=== PATIENT | female | born 1995 | race Two or more races ===

== ENCOUNTER 2024-04-11 14:32 | Emergency (ER) | payer MEDICAID, OTHER ==
[~2024-04-11] VITALS: Ht 172.7 cm; Wt 56.4 kg
--- NOTE | 2024-04-11 15:24 | DVH ---
EXAM: XY CHEST XRAY 1 VIEW TECHNIQUE: Single frontal chest radiograph CLINICAL HISTORY: SOB GX ASTHMA COMPARISON: None Findings/Impression: Frontal chest radiograph demonstrates no acute osseous or superficial soft tissue abnormalities. The trachea is midline. The cardiac silhouette and mediastinum are within normal limits. No pneumothorax, pleural effusions, or consolidations.
[2024-04-11] MEDS: IPRATROPIUM BROM 0.5 MG/2.5ML INH SOL NEB ONE ×2 (15:55→17:05)
[2024-04-11] MEDS: ALBUTEROL SULF 2.5 MG/0.5ML(0.5%) NEB SOLN NEB ONE ×2 (15:55→17:04)
--- NOTE | 2024-04-11 15:56 | ED.PDOC ---
SOB-HPI HPI Comments 28Y F with PMHx asthma and PNA presents to ED for chief complaint SOB [id number] with cough, congestion, wheezing, body aches, and chills. Pt denies chest pain and fever. Pt used rescue inhaler at home but did not experience symptom relief. Chief Complaint: Asthma Time Seen by MD: 15:34 Primary Care Provider: FER Lock notes: Nurses Notes, Medications, Allergies Information Source: Patient Mode of Arrival: Ambulatory Severity: Mild Timing: Weeks Duration: Since onset Context: At Rest PE Risk Factors: None History of: Asthma Modifying Factors: Nothing Associated Signs and Symptoms: Wheeze, Cough, Nasal Congestion Past Medical History PAST MEDICAL HISTORY: Asthma Surgical History: Denies all surgeries PICTURE ENGRAVER History: Denies all PICTURE ENGRAVER Hx Family History Family History: Unknown Social History Smoker: Cigarettes Alcohol: Denies ETOH Use Drugs: Denies Drug Use Lives In: Home Constitutional: reports: chills, others (body aches); denies: diaphoresis, fatigue, fever, malaise, sweats, weakness EENTM: reports: nose congestion; denies: blurred vision, double vision, ear bleeding, ear discharge, ear drainage, ear pain, ear ringing, eye pain, eye redness, hearing loss, mouth pain, mouth swelling, nasal discharge, nose bleeding, nose pain, photophobia, tearing, throat pain, throat swelling, voice changes, others Respiratory: reports: cough, SOB at rest, shortness of breath, SOB with excertion, wheezing; denies: hemoptysis, orthopnea, stridor, others Cardiovascular: denies: chest pain, dizzy spells, diaphoresis, Dyspnea on exertion, edema, irregular heart beat, left arm pain, lightheadedness, palpitations, PND, syncope, others Gastrointestinal: denies: abdomen distended, abdominal pain, blood streaked bowels, constipated, diarrhea, dysphagia, difficulty swallowing, hematemesis, melena, nausea, poor appetite, poor fluid intake, rectal bleeding, rectal pain, vomiting, others Genitourinary: denies: abnormal vagina bleeding, burning, dyspareunia, dysuria, flank pain, frequency, hematuria, incontinence, pain, , vagina discharge, urgency, others Neurological: denies: dizziness, fainting, headache, left sided numbness, left sided weakness, numbness, paresthesia, pre-existing deficit, right sided numbness, right sided weakness, seizure, speech problems, tingling, tremors, weakness, others Musculoskeletal: denies: back pain, gout, joint pain, joint swelling, muscle pain, muscle stiffness, neck pain, others Integumetry: denies: bruises, change in color, change in hair/nails, dryness, laceration, lesions, lumps, rash, wounds, others Allergic/Immunocompromised: denies: Difficulty Healing, Frequent Infections, Hives, Itching, others Hematologic/Lymphatic: denies: anemia, blood clots, easy bleeding, easy bruising, swollen glands, others Endocrine: denies: excessive hunger, excessive sweating, excessive thirst, excessive urination, flushing, intolerance to cold, intolerance to heat, unexplained weight gain, unexplained weight loss, others Psychiatric: denies: anxiety, bipolar disorder, depression, hopeless, panic disorder, schizophrenia, sleepless, suicidal, others All Other Systems: Reviewed and Negative Physical Exam General Appearance: Mild Distress, Normal, Thin HEENT: Normal ENT Inspection, PERRL/EOMI, Pharynx Normal, TMs Normal Neck: Full Range of Motion, Non-Tender, Normal, Normal Inspection Respiratory: Chest Non-Tender, Crackles, Decreased Breath Sounds, Expiration, Inspiration, No Accessory Muscle Use, No Respiratory Distress, Wheezing Cardiovascular: No Edema, No JVD, No Murmur, No Gallop, Normal Peripheral Pulses, Regular Rate/Rhythm Breast Exam: Deferred Gastrointestinal: No Organomegaly, Non Tender, No Pulsatile Mass, Normal Bowel Sounds, Soft Genitalia: Deferred Pelvic: Deferred Rectal: Deferred Extremities: No calf tenderness, Normal capillary refill, Normal inspection, N ormal range of motion, Non-tender, No pedal edema Musculoskeletal : Apperance: Normal Neurologic: Alert, maintenance representative II-XII nml as Tested, No Motor Deficits, Normal Affect, Normal Mood, No Sensory Deficits Cerebellar Function: Normal Reflexes: Normal Skin: Dry, Normal Color, Warm Peripheral Pulses: 1+ carotid (R), 1+ carotid (L) Lymphatic: No Adenopathy Was a procedure done? Was a procedure done?: No Differential Dx Differential Diagnosis: Asthma, Bronchitis, Hyponatremia, Pneumonia, URI X-Ray, Labs, Meds, VS Vital Signs Date Time Temp Pulse Resp B/P (MAP) Pulse Ox O2 Delivery O2 Flow Rate FiO2 04/11/24 17:05 18 92 Nasal Cannula* 2 28 04/11/24 16:35 95 04/11/24 16:33 94 19 88 Room Air 04/11/24 16:33 98.6 94 19 105/63 (77) 88 98.6 04/11/24 15:56 18 91 Nasal Cannula* 2 28 04/11/24 15:27 98.6 90 15 112/56 (74) 91 98.6 04/11/24 15:27 90 15 91 Nasal Cannula 04/11/24 15:02 90 Room Air* 0 21 04/11/24 14:38 97.9 105 24 144/81 (102) 91 Current Medications Medications (Trade) Dose Ordered Sig/Zoila Route Start Time Stop Time Status Last Admin Albuterol (Ventolin Medneb) 5 mg ONCE ONCE NEB 04/11/24 15:45 04/11/24 15:47 DC 04/11/24 15:55 Ipratropium [place] (Atrovent Medneb) 0.5 mg ONCE ONCE NEB 04/11/24 15:45 04/11/24 15:47 DC 04/11/24 15:55 Methylprednisolone Sodium Succinate (Solu Medrol) 125 mg ONCE ONCE IV 04/11/24 15:45 04/11/24 15:47 DC 04/11/24 16:01 Albuterol (Ventolin Medneb) 5 mg ONCE ONCE NEB 04/11/24 17:00 04/11/24 17:01 DC 04/11/24 17:04 Ipratropium [place] (Atrovent Medneb) 0.5 mg ONCE ONCE NEB 04/11/24 17:00 04/11/24 17:01 DC 04/11/24 17:05 [place] [id number] Ph: [phone] DIAGNOSTIC IMAGING Diagnostic Imaging Report : [id number] Signed PATIENT: JHON MCCURDY ACCT: [id number] UNIT: [id number] : 1995 LOC: ER ROOM / BED: / AGE / SEX: 28 / F ADM STATUS: REG ER SERVICE 1502 ORDERING PHYSICIAN: GENE RAMIREZ PROCEDURE(s): CXR1 - CHEST XRAY 1 VIEW REASON: SOB GX ASTHMA ORDER NUMBER(s): [id number], ACCESSION NUMBER(s): [id number] EXAM: XY CHEST XRAY 1 VIEW TECHNIQUE: Single frontal chest radiograph CLINICAL HISTORY: SOB GX ASTHMA COMPARISON: None Findings/Impression: Frontal chest radiograph demonstrates no acute osseous or superficial soft tissue abnormalities. The trachea is midline. The cardiac silhouette and mediastinum are within normal limits. No pneumothorax, pleural effusions, or consolidations. ATED BY: ALBINA HUGHES DO DICTATED DATE/TIME: 04/11/241520 SIGNED BY: ALBINA HUGHES DO SIGNED DATE/TIME: 04/11/241520 CC: X-Ray, Labs, Meds, VS Comment Course in the emergency department eventful patient came in because of shortness of breath cough congestion history of asthma with an asthma exacerbation The chest x-ray is normal Patient received med Kodi the 1st time still wheezing Repeat the the med Kodi patient also received Solu-Medrol 125 mg IV After further re-evaluation patient is feeling better and will be discharged home to follow up with her PCP Time of 1ST Reevaluation: 16:04 Reevaluation 1ST: Unchanged Patient Education/Counseling: Diagnosis, Treatment Family Education/Counseling: No Family Present Departure 1 Departure Time of Disposition: 18:03 Impression: Primary Impression: Asthmatic bronchitis Qualified Codes: J45.41 - Moderate persistent asthma with (acute) exacerba tion Ruled Out: Pneumonia Disposition: HOME / SELF CARE / HOMELESS Condition: Fair Additional Instructions: Push fluids and follow up with your PCP e-Prescriptions Prednisone (Prednisone) 20 Mg Tab 20 MG PO BID for 5 Days, #10 MG Prov: NETO WHITEHEAD MD 04/11/24 Albuterol Sulfate (Albuterol Sulfate Hfa) 108 Mcg/Act Aer 108 MCG IN BID for 15 Days, #1 AER Prov: NETO WHITEHEAD MD 04/11/24 Azithromycin (Zithromax) 500 Mg Tab 1 TAB PO DAILY, #5 TAB Prov: NETO WHITEHEAD MD 04/11/24 Discharged With: Self Critical Care Note Critical Care Time?: No Stability Stability form required: No Heart Score Heart Score: Heart Score Response (Comments) Value History N/A 0 EKG N/A 0 Age <45 0 Risk Factors No known risk factors 0 Troponin N/A 0 Total 0 I personally scribed for NETO WHITEHEAD MD ([email or web address]) on 04/11/24 at 15:56. Electronically submitted by Diana Roque ([facility]). I personally scribed for NETO WHITEHEAD MD ([email or web address]) on 04/11/24 at 15:56. El ectronically submitted by Diana Roque ([facility]). NETO WHITEHEAD MD Apr 11, 2024 15:56
[2024-04-11] MEDS: methylPREDNISolone SOD SUCC 125 MG/2 ML VL IV ONE (16:01)
[2024-04-11 16:33] VITALS: BP 105/63; PULSE 94; TEMP 98.6
[2024-04-11 17:05] VITALS: RESP 18; O2SAT 92
[2024-04-11] MEDS ORDERED: ALBU108A5 IN (18:10)
[2024-04-11] MEDS ORDERED: PRED20TA2 PO (18:10)
[2024-04-11] MEDS ORDERED: AZIT500T PO (18:10)
== END 2024-04-11 18:35 | disposition home or self-care (01) ==
LOC: ER 14:32
DX: J45.909 Unspecified asthma, uncomplicated (principal); F17.210 Nicotine dependence, cigarettes, uncomplicated
CPT/HCPCS: 71045; 94640; 96374; 99285; J2919

== ENCOUNTER 2024-05-04 18:54 | Inpatient (IN) | payer OTHER, MEDICAID ==
[~2024-05-04] VITALS: Ht 160 cm; Wt 57.4 kg
[~2024-05-04 18:54] MED LIST: ALBU108A5 IN; AZIT500T PO; PRED20TA2 PO
[2024-05-04] MEDS: methylPREDNISolone SOD SUCC 125 MG/2 ML VL IV ONE (19:04)
[2024-05-04 19:16] VITALS: PULSE 135; RESP 28; O2SAT 98
--- NOTE | 2024-05-04 19:42 | ED.PDOC ---
SOB-HPI HPI Comments 28-year-old female who came to the emergency room via EMS due to shortness of breath. Patient has history of asthma. Few hours ago she developed sudden onset shortness of breath and wheezing. Saturating 70% on room air. Patient was placed on CPAP and it improved to 90% Chief Complaint: Shortness of Breath Time Seen by MD: 19:42 Primary Care Provider: unknown Reviewed notes: Jewelry Cutter Notes Information Source: Patient, Emergency Med Personnel Mode of Arrival: EMS Severity: Moderate Timing: Hours Duration: Since onset Context: At Rest, With Light Exertion PE Risk Factors: None History of: COPD Prehospital treatment: Breathing Tx, C-Pap, Oxygen Modifying Factors: Nothing Associated Signs and Symptoms: Wheeze Quality: Tightness Radiation: No Radiation Location: Chest (R), Chest (L) Past Medical History PAST MEDICAL HISTORY: Asthma Surgical History: Denies all surgeries FACTORY HAND History: Denies all FACTORY HAND Hx Family History Family History: Unknown Social History Smoker: Cigarettes Alcohol: Denies ETOH Use Drugs: Denies Drug Use Lives In: Home Constitutional: denies: chills, diaphoresis, fatigue, fever, malaise, sweats, weakness, others EENTM: denies: blurred vision, double vision, ear bleeding, ear discharge, ear drainage, ear pain, ear ringing, eye pain, eye redness, hearing loss, mouth pain, mouth swelling, nasal discharge, nose bleeding, nose congestion, nose pain, photophobia, tearing, throat pain, throat swelling, voice changes, others Respiratory: reports: SOB at rest, shortness of breath, wheezing; denies: cough, hemoptysis, orthopnea, SOB with excertion, stridor, others Cardiovascular: denies: chest pain, dizzy spells, diaphoresis, Dyspnea on exertion, edema, irregular heart beat, left arm pain, lightheadedness, palpitations, PND, syncope, others Gastrointestinal: denies: abdomen distended, abdominal pain, blood streaked bowels, constipated, diarrhea, dysphagia, difficulty swallowing, hematemesis, melena, nausea, poor appetite, poor fluid intake, rectal bleeding, rectal pain, vomiting, others Genitourinary: denies: abnormal vagina bleeding, burning, dyspareunia, dysuria, flank pain, frequency, hematuria, incontinence, pain, , vagina discharge, urgency, others Neurological: denies: dizziness, fainting, headache, left sided numbness, left sided weakness, numbness, paresthesia, pre-existing deficit, right sided numbness, right sided weakness, seizure, speech problems, tingling, tremors, weakness, others Musculoskeletal: denies: back pain, gout, joint pain, joint swelling, muscle pain, muscle stiffness, neck pain, others Integumetry: denies: bruises, change in color, change in hair/nails, dryness, laceration, lesions, lumps, rash, wounds, others Allergic/Immunocompromised: denies: Difficulty Healing, Frequent Infections, Hi ves, Itching, others Hematologic/Lymphatic: denies: anemia, blood clots, easy bleeding, easy bruising, swollen glands, others Endocrine: denies: excessive hunger, excessive sweating, excessive thirst, excessive urination, flushing, intolerance to cold, intolerance to heat, unexplained weight gain, unexplained weight loss, others Psychiatric: denies: anxiety, bipolar disorder, depression, hopeless, panic disorder, schizophrenia, sleepless, suicidal, others Physical Exam General Appearance: No Apparent Distress, Normal HEENT: Normal ENT Inspection, Pharynx Normal, TMs Normal Neck: Full Range of Motion, Non-Tender, Normal, Normal Inspection Respiratory: Chest Non-Tender, No Accessory Muscle Use, Respiratory Distress, Wheezing Cardiovascular: No Edema, No JVD, No Murmur, No Gallop, Normal Peripheral Pulses, Regular Rate/Rhythm Breast Exam: Deferred Gastrointestinal: No Organomegaly, Non Tender, No Pulsatile Mass, Normal Bowel Sounds, Soft Genitalia: Deferred Pelvic: Deferred Rectal: Deferred Extremities: No calf tenderness, Normal capillary refill, Normal inspection, Normal range of motion, Non-tender, No pedal edema Musculoskeletal : Apperance: Normal Neurologic: Alert, precision dyer II-XII nml as Tested, No Motor Deficits, Normal Affect, Normal Mood, No Sensory Deficits Cerebellar Function: Normal Reflexes: Normal Skin: Dry, Normal Color, Warm Lymphatic: No Adenopathy Was a procedure done? Was a procedure done?: No Differential Dx Differential Diagnosis: Asthma, Bronchitis, Pneumonia, Respiratory Distress X-Ray, Labs, Meds, VS Vital Signs Date Time Temp Pulse Resp B/P (MAP) Pulse Ox O2 Delivery O2 Flow Rate FiO2 05/04/24 19:16 135 28 98 Bi-Pap+ 100 100 05/04/24 19:15 135 28 155/80 (105) 98 05/04/24 19:14 139 155/80 Facial BiPAP Mask 100 05/04/24 19:00 98.0 149 30 155/123 (134) 95 Lab Test 05/04/24 19:59 05/04/24 19:44 Range/Units White Blood Count 11.6 H 4.4-10.8 10^3/uL Red Blood Count 4.74 4.0-5.20 10^6/uL Hemoglobin 15.2 12.2-16.2 g/dL Hematocrit 44.8 36.0-46.0 % Mean Corpuscular Volume 94.7 80.0-100.0 fL Mean Corpuscular Hemoglobin 32.2 H 28.0-32.0 pg Mean Corpuscular Hemoglobin Concent 34.0 32.0-36.0 g/dL Red Cell Distribution Width 12.9 11.8-14.3 % Platelet Count 211 140-450 10^3/uL Mean Platelet Volume 9.6 6.9-10.8 fL Neutrophils (%) (Auto) 62.8 37.0-80.0 % Lymphocytes (%) (Auto) 16.6 10.0-50.0 % Monocytes (%) (Auto) 7.4 0.0-12.0 % Eosinophils (%) (Auto) 12.7 H 0.0-7.0 % Basophils (%) (Auto) 0.5 0.0-2.0 % Neutrophils # (Auto) 7.3 1.6-8.6 10 ^3/uL Lymphocytes # (Auto) 1.9 0.4-5.4 10 ^3/uL Monocytes # (Auto) 0.9 0-1.3 10 ^3/uL Eosinophils # (Auto) 1.5 H 0-0.8 10 ^3/uL Basophils # (Auto) 0.1 0-0.2 10 ^3/uL Nucleated Red Blood Cells 0.0 % Sodium Level 140 136-145 mmol/L Potassium Level 3.8 3.5-5.1 mmol/L Chloride Level 106 98-107 mmol/L Carbon Dioxide Level 26 20-31 mmol/L Anion Gap 8 5-15 Blood Urea Nitrogen 6 L 9-23 mg/dL Creatinine 0.73 0.550-1.02 mg/dL Glomerular Filtration Rate Calc 116 >90 mL/min BUN/Creatinine Ratio 8.2 L 10.0-20.0 Serum Glucose 123 H 74-106 mg/dL Calcium Level 9.6 8.7-10.4 mg/dL Blood Gas Specimen Type Arterial Blood Gas Sample Site Left radial Blood Gas Patient Temperature 37.0 Arterial Blood Date Drawn [id number] Arterial Blood pH 7.319 L 7.350-7.450 Arterial Blood Partial Pressure CO2 47.8 H 32.0-45.0 mmHg Arterial Blood Partial Pressure O2 273.1 H 83.0-108.0 mmHg Arterial Blood HCO3 24.0 21.0-28.0 mmol/L Arterial Blood Oxygen Saturation 99.7 H 94.0-98.0 % Arterial Blood Base Excess -2.5 L -2.0-3.0 mmol/L Arterial Blood Oxyhemoglobin 98.7 H 94.0-98.0 % Arterial Blood Carboxyhemoglobin 0.5 0.5-1.5 % Arterial Blood Methemoglobin 0.5 0.0-1.5 % Karthikeyan Test Modified Blood Gas Total Hemoglobin 15.80 12.0-16.0 g/dL Blood Gas Modality Mask - bipap FiO2 % 100.0 Blood Gas EPAP 5 Blood Gas IPAP 12 Current Medications Medications (Trade) Dose Ordered Sig/Zoila Route Start Time Stop Time Status Last Admin Albuterol (Ventolin Medneb) 5 mg ONCE ONCE NEB 05/04/24 19:00 05/04/24 19:01 DC 05/04/24 19:50 Ipratropium [place] (Atrovent Medneb) 0.5 mg ONCE ONCE NEB 05/04/24 19:00 05/04/24 19:01 DC 05/04/24 19:50 Methylprednisolone Sodium Succinate (Solu Medrol) 62.5 mg ONCE ONCE IV 05/04/24 19:00 05/04/24 19:01 DC 05/04/24 19:04 Magnesium Sulfate/ Dextrose 100 ml @ 100 mls/hr Q1H IV 05/04/24 19:00 05/04/24 20:59 05/04/24 19:45 Ketamine HCl (Ketalar) 30 mg ONCE ONCE IV 05/04/24 19:30 05/04/24 19:31 DC 05/04/24 20:11 Time of 1ST Reevaluation: 19:37 Reevaluation 1ST: Unchanged Patient Education/Counseling: Diagnosis, Treatment Family Education/Counseling: No Family Present Departure 1 Departure Time of Disposition: 20:47 (Patient presented with acute shortness of breath concerning for acute on chronic asthma exacerbation, Pneumonia, ACS, CHF, Pneumothorax. Less likely PE, Dissection. Data: 1. I ordered and reviewed the result of at least 3 labs including a CBC, BMP, and Troponin. 2. I independently interpreted the following tests: Chest X-ray shows benign chest .Risk:This patient has a high risk of morbidity due to further diagnostic testing or treatment and may suffer from respiratory or cardiac etiology . Workup reveals an asthma exacerbation requiring BiPAP and patient should be admitted for further workup. and possible expert consultation.) Impression: Primary Impression: Acute respiratory failure Qualified Codes: J96.01 - Acute respiratory failure with hypoxia Additional Impression: Acute asthma exacerbation Qualified Codes: J45.41 - Moderate persistent asthma with (acute) exacerbation Disposition: ADMITTED INPATIENT Admit to: [facility] Condition: Critical Critical Care Note Critical Care Time?: Yes (35 min-critical care time only) Critical care comment: Acute respiratory failure requiring BiPAP Authorized and Performed by: Mirella Zuleta MD Total critical care time: Approximately 48 minutes Due to a high probability of clinically significant, life threatening deterioration, the patient required my highest level of preparedness to intervene emergently and I personally spent this critical care time directly and personally managing the patient. This critical care time included obtaining a history; examining the patient; pulse oximetry; ordering and review of studies; arranging urgent treatment with development of a management plan; evaluation of patient's response to treatment; frequent reassessment; and, discussions with other providers. This critical care time was performed to assess and manage the high probability of imminent, life-threatening deterioration that could result in multi-organ failure. It was exclusive of separately billable procedures and treating other patients and teaching time. Please see my other sections and the rest of the note for further information on patient assessment and treatment. Stability Stability form required: No Heart Score Heart Score: Heart Score Response (Comments) Value History N/A 0 EKG N/A 0 Age N/A 0 Risk Factors N/A 0 Troponin N/A 0 Total 0 I personally scribed for MIRELLA ZULETA MD ([email or web address]) on 1/24/25 at 19:42. Electronically submitted by Dong Desai ([email or web address]). MIRELLA ZULETA MD May 04, 2024 19:42
--- NOTE | 2024-05-04 19:43 | DVH ---
CHEST RADIOGRAPH Indication: sob Technique: Single frontal view of the chest was obtained Comparison: XY CHEST XRAY 1 VIEW on DOS: 04/11/24 FINDINGS: Lines and Tubes: None Lungs: No focal consolidation. Pleura: No effusion. No pneumothorax. Cardiomediastinal contours: Unremarkable Bones: No acute osseous abnormality. IMPRESSION: 1. No acute cardiopulmonary disease. 2. Hyperinflation
[2024-05-04] MEDS: MAGNESIUM SULFATE 1GM/100ML 100 ML IV SCH (19:45)
[2024-05-04 19:50] LABS: Base Excess -2.5 mmol/L (-2.0-3.0)
[2024-05-04] MEDS: IPRATROPIUM BROM 0.5 MG/2.5ML INH SOL NEB ONE (19:50)
[2024-05-04] MEDS: ALBUTEROL SULF 2.5 MG/0.5ML(0.5%) NEB SOLN NEB ONE (19:50)
[2024-05-04] MEDS: KETAMINE 50mg/ML 10ml Vial (500mg/10ml) IV ONE (20:11)
[2024-05-04 20:16] LABS: Basophils # (auto) 0.1 10 ^3/uL (0-0.2); Basophils % (auto) 0.5 % (0.0-2.0); Eosinophils # (auto) 1.5 10 ^3/uL (0-0.8); Eosinophils % (auto) 12.7 % (0.0-7.0); Hematocrit 44.8 % (36.0-46.0); Hemoglobin 15.2 g/dL (12.2-16.2); Lymphocytes # (auto) 1.9 10 ^3/uL (0.4-5.4); Lymphocytes % (auto) 16.6 % (10.0-50.0); Mean Corpuscular Hemoglobin 32.2 pg (28.0-32.0); Mean Corpuscular Volume 94.7 fL (80.0-100.0); Monocytes # (auto) 0.9 10 ^3/uL (0-1.3); Monocytes % (auto) 7.4 % (0.0-12.0); Neutrophils # (auto) 7.3 10 ^3/uL (1.6-8.6); Neutrophils % (auto) 62.8 % (37.0-80.0); Platelet Count (auto) 211 10^3/uL (140-450); Red Blood Cells 4.74 10^6/uL (4.0-5.20); Red Cell Distribution Width 12.9 % (11.8-14.3); White Blood Cell 11.6 10^3/uL (4.4-10.8)
[2024-05-04 20:20] LABS: Chloride 106 mmol/L (98-107); Potassium 3.8 mmol/L (3.5-5.1); Sodium 140 mmol/L (136-145)
[2024-05-04 20:21] LABS: Anion Gap 8 (5-15); Carbon Dioxide 26 mmol/L (20-31)
[2024-05-04 20:22] LABS: Calcium 9.6 mg/dL (8.7-10.4)
[2024-05-04 20:26] LABS: BUN/Creatinine Ratio 8.2 (10.0-20.0)
[2024-05-04 20:27] LABS: Blood Urea Nitrogen 6 mg/dL (9-23); Glucose 123 mg/dL (74-106)
[2024-05-04] MEDS ORDERED: HYDROcodone-ACET 5/325MG TAB PO PRN (21:30)
[2024-05-04] MEDS ORDERED: ONDANSETRON HCL 4 MG/2 ML VIAL IV PRN (21:30)
[2024-05-04] MEDS ORDERED: DOCUSATE SOD 100 MG CAP PO PRN (21:30)
[2024-05-04] MEDS ORDERED: ACETAMINOPHEN 325 MG TAB PO PRN (21:30)
[2024-05-04] MEDS ORDERED: NITROGLYCERIN 0.4 MG SL TAB SL PRN (21:30)
[2024-05-04] MEDS ORDERED: MORPHINE SULFATE INJ 2 MG/ml SYRG IV PRN (21:30)
--- NOTE | 2024-05-04 21:35 | DVHHP2 ---
History of Present Illness Reason for Visit: Acute respiratory failure with hypoxia History of Present Illness The patient is a 28-year-old female with past medical history of asthma presented to [facility] ED with complaint of shortness of breaths. Patient reports symptoms progressively get worse with shortness of breath on exertion, SOB at rest, hypoxia with O2 saturation in the 70s, increased work of breathing, getting worse that prompted this visit. Patient was seen and evaluated in the ED, laboratory data shows WBC 11.6, platelets 211, sodium 140, potassium 3.8, BUN 6, creatinine 0.73, GFR 116, glucose 123, blood pressure 155/80, heart rate 149 trending down to 75, temperature 98.0 F, O2 saturation 95% on BiPAP. Chest x-ray show no acute cardiopulmonary disease, noted hyperinflation. Patient was started on IV Solu-Medrol, please see medication orders section in the computer. On my assessment, patient denied chest pain, no headache, no dizziness, no diaphoresis, currently on oxygen, no nausea, no vomiting, no fever, no chills. Patient was admitted for further evaluation medical management. Past Medical History Asthma Past Surgical History Denies all surgeries Family History Reviewed, noncontributory to the management of this case. Past Social History The patient lives at home, smokes cigarettes, denies alcohol or illicit drugs abuse. Review of Systems Constitutional: Yes: Weakness; No: Fever, Chills, Sweats, Malaise, Other Eyes: No: Pain, Vision change, Conjunctivae inflammation, Eyelid inflammation, Other, Redness ENT: No: Ear pain, Ear discharge, Nose pain, Nose discharge, Nose congestion, Mouth pain, Mouth swelling, Throat pain, Throat swelling, Other Respiratory: Shortness of breath, SOB with excertion, Other (SOB at rest); No: Cough, Dry, Wheezing, Hemoptysis, Pleuritic Pain, Sputum, Wheezing Cardiovascular: No: Chest Pain, Palpitations, Orthopnea, Paroxysmal Noc. Dyspnea, Edema, Lt Headedness, Other Gastrointestinal: No: Nausea, Vomiting, Abdominal Pain, Diarrhea, Constipation, Melena, Hematochezia, Other Genitourinary: No Dysuria, No Frequency, No Incontinence, No Hematuria, No Retention, No Other Musculoskeletal: No: other, neck pain, shoulder pain, arm pain, back pain, hand pain, leg pain, foot pain Skin: No: Rash, Lesions, Jaundice, Bruising, Other Neurological: No: Weakness, Numbness, Incoordination, Change in speech, Confusion, Seizures, Other Allergies: Coded Allergies: NO KNOWN ALLERGIES (Unverified , 04/11/24) Exam Vital Signs Vital Signs Date Time Temp Pulse Resp B/P (MAP) Pulse Ox O2 Delivery O2 Flow Rate FiO2 05/04/24 20:51 123 Facial BiPAP Mask 75 05/04/24 19:16 28 98 05/04/24 19:15 155/80 (105) 05/04/24 19:00 98.0 General Appearance: Alert, Oriented X3, Cooperative, No acute distress HEENT: Atraumatic, PERRLA, EOMI, Mucous membr. moist/pink Respiratory: Clear to auscultation, Normal air movement Cardiovascular: Regular rate, Normal S1, Normal S2, No murmurs Abdominal: Normal bowel sounds, Soft, No tenderness, No hepatospenomegaly, No masses Extremities: No clubbing, No cyanosis, No edema, Normal pulses, No tenderness/swelling Skin: No rashes, No breakdown, No significant lesion Neuro: Normal speech, Normal tone, Sensation intact, Cranial nerves 3-12 NL, Reflexes 2+, Other (Generalized weakness) Psych/Mental Status: Mental status NL, Mood NL Labs/Xrays Labs Test 05/04/24 19:59 05/04/24 19:44 Range/Units White Blood Count 11.6 H 4.4-10.8 10^3/uL Red Blood Count 4.74 4.0-5.20 10^6/uL Hemoglobin 15.2 12.2-16.2 g/dL Hematocrit 44.8 36.0-46.0 % Mean Corpuscular Volume 94.7 80.0-100.0 fL Mean Corpuscular Hemoglobin 32.2 H 28.0-32.0 pg Mean Corpuscular Hemoglobin Concent 34.0 32.0-36.0 g/dL Red Cell Distribution Width 12.9 11.8-14.3 % Platelet Count 211 140-450 10^3/uL Mean Platelet Volume 9.6 6.9-10.8 fL Neutrophils (%) (Auto) 62.8 37.0-80.0 % Lymphocytes (%) (Auto) 16.6 10.0-50.0 % Monocytes (%) (Auto) 7.4 0.0-12.0 % Eosinophils (%) (Auto) 12.7 H 0.0-7.0 % Basophils (%) (Auto) 0.5 0.0-2.0 % Neutrophils # (Auto) 7.3 1.6-8.6 10 ^3/uL Lymphocytes # (Auto) 1.9 0.4-5.4 10 ^3/uL Monocytes # (Auto) 0.9 0-1.3 10 ^3/uL Eosinophils # (Auto) 1.5 H 0-0.8 10 ^3/uL Basophils # (Auto) 0.1 0-0.2 10 ^3/uL Nucleated Red Blood Cells 0.0 % Sodium Level 140 136-145 mmol/L Potassium Level 3.8 3.5-5.1 mmol/L Chloride Level 106 98-107 mmol/L Carbon Dioxide Level 26 20-31 mmol/L Anion Gap 8 5-15 Blood Urea Nitrogen 6 L 9-23 mg/dL Creatinine 0.73 0.550-1.02 mg/dL Glomerular Filtration Rate Calc 116 >90 mL/min BUN/Creatinine Ratio 8.2 L 10.0-20.0 Serum Glucose 123 H 74-106 mg/dL Calcium Level 9.6 8.7-10.4 mg/dL Blood Gas Specimen Type Arterial Blood Gas Sample Site Left radial Blood Gas Patient Temperature 37.0 Arterial Blood Date Drawn [id number] Arterial Blood pH 7.319 L 7.350-7.450 Arterial Blood Partial Pressure CO2 47.8 H 32.0-45.0 mmHg Arterial Blood Partial Pressure O2 273.1 H 83.0-108.0 mmHg Arterial Blood HCO3 24.0 21.0-28.0 mmol/L Arterial Blood Oxygen Saturation 99.7 H 94.0-98.0 % Arterial Blood Base Excess -2.5 L -2.0-3.0 mmol/L Arterial Blood Oxyhemoglobin 98.7 H 94.0-98.0 % Arterial Blood Carboxyhemoglobin 0.5 0.5-1.5 % Arterial Blood Methemoglobin 0.5 0.0-1.5 % Karthikeyan Test Modified Blood Gas Total Hemoglobin 15.80 12.0-16.0 g/dL Blood Gas Modality Mask - bipap FiO2 % 100.0 Blood Gas EPAP 5 Blood Gas IPAP 12 PATIENT: CALLI,JHON ACCT: [id number] UNIT: [id number] : 1995 LOC: ER ROOM / BED: / AGE / SEX: 28 / F ADM STATUS: REG ER SERVICE 55 ORDERING PHYSICIAN: MIRELLA CHAVEZ MD PROCEDURE(s): CXRP - CHEST PORTABLE REASON: sob ORDER NUMBER(s): [id number], ACCESSION NUMBER(s): [id number] CHEST RADIOGRAPH Indication: sob Technique: Single frontal view of the chest was obtained Comparison: XY CHEST XRAY 1 VIEW on DOS: 04/11/24 FINDINGS: Lines and Tubes: None Lungs: No focal consolidation. Pleura: No effusion. No pneumothorax. Cardiomediastinal contours: Unremarkable Bones: No acute osseous abnormality. IMPRESSION: 1. No acute cardiopulmonary disease. 2. Hyperinflation Assessment/Plan Assessment/Plan Acute respiratory failure Tachycardia Acute respiratory failure with hypoxia Acute asthma exacerbation Generalized weakness Moderate persistent asthma with (acute) exacerbation Plan 1. Admit to telemetry unit 2. Breathing treatment 3. Pain control management 4. Management of fluids and electrolytes 5. Consultation for pulmonology 6. Diagnostic tests chest x-ray 7. DVT prophylaxis-on SCDs 8. Repeat labs CBC, CMP in a.m. 9. Continue with current medical management 10. Treatment plan discussed with patient and RN. Patient verbalized understanding. Plan discussed with: Patient, Other (RN) My Orders Orders - TOÑO GREEN DNP Procedure Category Date Status Time Levalbuterol Hcl PHA 05/05/24 Verified (Xopenex Medneb) 00:00 Ipratropium Medneb PHA 05/04/24 Verified (Atrovent Medneb) 21:30 Methylprednisolone PHA 05/04/24 Verified Sod Succ (Solu Medrol 22:00 Famotidine Injection PHA 05/04/24 Verified (Pepcid Injection) 22:00 *Consult CONS 05/04/24 Verified / 21:28 Admit ADMIT 05/04/24 Verified 21:28 Allergies DIANE 05/04/24 Verified 21:28 Code Status CODE 05/04/24 Verified 21:28 Oxygen Per Hour RT 05/04/24 Verified 21:28 Hydrocodone-Acet PHA 05/04/24 Verified 5/325mg Tab ([place] 21:30 Problem List: (1) Acute respiratory failure (2) Tachycardia (3) Acute respiratory failure with hypoxia (4) Acute asthma exacerbation (5) Generalized weakness (6) Moderate persistent asthma with (acute) exacerbation Date of Service: May 04, 2024 Billing Provider: TOÑO GREEN DNP Common Visit Codes: [id number] INP/OBS CARE (HIGH) TOÑO GREEN DNP May 04, 2024 21:35
--- NOTE | 2024-05-04 22:51 | DVHINCON2 ---
Date of service: May 04, 2024 Referring Physician Carlton Sparks NP Reason for Consultation Acute hypoxic respiratory failure and asthma exacerbation History of Present Illness A 28-year-old woman with past medical history of asthma who presents to ED today with complaint of shortness of breath. Patient reports symptoms progressively worsened with shortness of breath on exertion, SOB at rest, hypoxia with O2 saturation in the 70s, and increased work of breathing that prompted this visit. Workup in ED showed WBC 11.6, platelets 211, sodium 140, potassium 3.8, BUN 6, creatinine 0.73, GFR 116, glucose 123. Vitals were BP of 155/80, heart rate 149 trending down to 75, temperature 98.0 F, O2 saturation 95% on BiPAP. Chest x- ray showed no acute cardiopulmonary disease, noted hyperinflation. Patient was admitted for further care and pulmonary consultation is requested for evaluation and management of acute hypoxic respiratory failure and asthma exacerbation. Review of Systems: 14-point review of systems negative unless otherwise noted above. Past Medical History: Asthma Past Surgical History: None Medications: Reviewed. Allergies: No known drug allergies. Family History: No family history of premature CAD. No family history of lung disorders. Social History: Smoker. Smokes cigarettes. No alcohol or illicit drug use. Allergies: Coded Allergies: NO KNOWN ALLERGIES (Unverified , 04/11/24) Home Meds Active Scripts Methylprednisolone (Medrol Dosepak) 4 Mg Devin, 4 MG PO UD, #21 TAB UAD Prov:JORGE PÉREZ MD 05/06/24 Azithromycin (ZITHROMAX TABLET) 250 Mg Tb, 250 MG PO DAILY, #6 TAB take 2 tabs the first day and then 1 tab per day until finish Prov:JORGE PÉREZ MD 05/06/24 Albuterol Sulfate (Albuterol Sulfate Hfa) 108 Mcg/Act Aer, 108 MCG IN BID PRN, #1 AER 5 Refills Prov:JORGE PÉREZ MD 05/06/24 Current Medications Current Medications Medications (Trade) Dose Ordered Sig/Zoila Route PRN Reason Start Time Stop Time Status Last Admin Magnesium Sulfate/ Dextrose 100 ml @ 100 mls/hr Q1H IV 05/04/24 19:00 05/04/24 20:59 DC 05/04/24 19:45 Levalbuterol HCl (Xopenex Medneb) 0.625 mg Q6HR NEB 05/05/24 00:00 Ipratropium [place] (Atrovent Medneb) 0.5 mg Q6HPRN PRN NEB SHORTNESS OF BREATH 05/04/24 21:30 Methylprednisolone Sodium Succinate (Solu Medrol) 40 mg Q8HR IV 05/04/24 22:00 Famotidine (Pepcid Injection) 20 mg Q12HR IV 05/04/24 22:00 Acetaminophen/ Hydrocodone Bitart ([place] 5/325MG Tab) 1 tab Q4HP PRN PO MODERATE PAIN (4-6 PAIN SCALE) 05/04/24 21:30 Ondansetron HCl (Zofran) 4 mg Q4HP PRN IV NAUSEA / VOMITING 05/04/24 21:30 Docusate Sodium (Colace Capsule) 100 mg BIDPRN PRN PO FOR CONSTIPATION 05/04/24 21:30 Acetaminophen (Tylenol Tablet) 650 mg Q6HP PRN PO PAIN SCALE 1-3 OR TEMP>100.4 05/04/24 21:30 Nitroglycerin (Ntrostat Sublingual) 0.4 mg Q5MINP PRN SL FOR CHEST PAIN 05/04/24 21:30 Morphine Sulfate 2 mg Q30M PRN IV FOR CHEST PAIN 05/04/24 21:30 Vital Signs Vital Signs Date Time Temp Pulse Resp B/P (MAP) Pulse Ox O2 Delivery O2 Flow Rate FiO2 05/04/24 20:51 123 Facial BiPAP Mask 75 05/04/24 19:16 28 98 05/04/24 19:15 155/80 (105) 05/04/24 19:00 98.0 Physical Exam Gen.: Patient lying in bed in no apparent distress. On BiPAP Head: Normocephalic, atraumatic. Eyes: EOMI/PERRLA. Ears: Normal hearing. Normal anatomy. Neck/trachea: Trachea midline, supple. Nose: Normal external anatomy. Mouth: Moist mucous membranes. Chest: Decreased air entry bilaterally. No wheezing or rhonchi. Cardiovascular: Positive S1, positive S2. Regular rate and rhythm. Abdomen: Positive bowel sounds in all 4 quadrants. Soft, non-tender, non- distended. : Deferred. Rectal: Deferred. Skin: Warm, dry. Intact. Extremities: 2+ radial pulses bilaterally. No lower extremity edema. Neuro: Awake, alert, oriented x3. No gross motor or sensory deficits. Cranial nerves II through XII intact. Gait not assessed. Labs/Diagnostic Data Labs Test 05/04/24 19:59 05/04/24 19:44 Range/Units White Blood Count 11.6 H 4.4-10.8 10^3/uL Red Blood Count 4.74 4.0-5.20 10^6/uL Hemoglobin 15.2 12.2-16.2 g/dL Hematocrit 44.8 36.0-46.0 % Mean Corpuscular Volume 94.7 80.0-100.0 fL Mean Corpuscular Hemoglobin 32.2 H 28.0-32.0 pg Mean Corpuscular Hemoglobin Concent 34.0 32.0-36.0 g/dL Red Cell Distribution Width 12.9 11.8-14.3 % Platelet Count 211 140-450 10^3/uL Mean Platelet Volume 9.6 6.9-10.8 fL Neutrophils (%) (Auto) 62.8 37.0-80.0 % Lymphocytes (%) (Auto) 16.6 10.0-50.0 % Monocytes (%) (Auto) 7.4 0.0-12.0 % Eosinophils (%) (Auto) 12.7 H 0.0-7.0 % Basophils (%) (Auto) 0.5 0.0-2.0 % Neutrophils # (Auto) 7.3 1.6-8.6 10 ^3/uL Lymphocytes # (Auto) 1.9 0.4-5.4 10 ^3/uL Monocytes # (Auto) 0.9 0-1.3 10 ^3/uL Eosinophils # (Auto) 1.5 H 0-0.8 10 ^3/uL Basophils # (Auto) 0.1 0-0.2 10 ^3/uL Nucleated Red Blood Cells 0.0 % Sodium Level 140 136-145 mmol/L Potassium Level 3.8 3.5-5.1 mmol/L Chloride Level 106 98-107 mmol/L Carbon Dioxide Level 26 20-31 mmol/L Anion Gap 8 5-15 Blood Urea Nitrogen 6 L 9-23 mg/dL Creatinine 0.73 0.550-1.02 mg/dL Glomerular Filtration Rate Calc 116 >90 mL/min BUN/Creatinine Ratio 8.2 L 10.0-20.0 Serum Glucose 123 H 74-106 mg/dL Calcium Level 9.6 8.7-10.4 mg/dL Blood Gas Specimen Type Arterial Blood Gas Sample Site Left radial Blood Gas Patient Temperature 37.0 Arterial Blood Date Drawn [id number] Arterial Blood pH 7.319 L 7.350-7.450 Arterial Blood Partial Pressure CO2 47.8 H 32.0-45.0 mmHg Arterial Blood Partial Pressure O2 273.1 H 83.0-108.0 mmHg Arterial Blood HCO3 24.0 21.0-28.0 mmol/L Arterial Blood Oxygen Saturation 99.7 H 94.0-98.0 % Arterial Blood Base Excess -2.5 L -2.0-3.0 mmol/L Arterial Blood Oxyhemoglobin 98.7 H 94.0-98.0 % Arterial Blood Carboxyhemoglobin 0.5 0.5-1.5 % Arterial Blood Methemoglobin 0.5 0.0-1.5 % Karthikeyan Test Modified Blood Gas Total Hemoglobin 15.80 12.0-16.0 g/dL Blood Gas Modality Mask - bipap FiO2 % 100.0 Blood Gas EPAP 5 Blood Gas IPAP 12 Assessment Impression: Acute hypoxic respiratory failure Acute exacerbation of asthma Nicotine dependence Eosinophilic asthma Plan: On BiPAP Titrate to keep O2 sats above 92%. Continue bronchodilators. Pulmicort BID Continue steroids Monitor renal function. Monitor electrolytes. Supplement as necessary. Monitor ins and outs. Smoking cessation discussed for greater than 10 minutes No desire to quit at this time Of note, eosinophils were 1150 DVT prophylaxis. Prognosis: Poor given patient's multiple co-morbidities. Rest of plan per hospitalist and other consultants. Thank you, SOCORRO Sparks, for allowing me to participate in this patient's care. Further recommendations will depend on the patient's clinical course. Please do not hesitate to contact me if you have any questions or concerns. This medical document was created using an electronic medical record system with [employer] system. Although these documentations are being carefully reviewed, there may still be some phonetic and typographical changes. The errors are purely typographical, due to imperfection on the software program, and do not reflect any compromise in the patient's medical care. Plan discussed with: Patient, Other (RN/SOCORRO Sparks/) MILES SCHNEIDER MD May 04, 2024 22:51
[2024-05-04 23:00] VITALS: BP 117/59; PULSE 91; RESP 19; TEMP 98.1; O2SAT 94
[2024-05-04] MEDS: SODIUM CHLORIDE 0.9% 1,000 ML IV ONE (23:02)
[2024-05-04] MEDS: FAMOTIDINE (10MG/ML) 2ML VL IV SCH (23:05)
[2024-05-04] MEDS: methylPREDNISolone SOD SUCC 40 MG/ML VL IV SCH (23:08)
[2024-05-04 23:47] VITALS: BP 117/59; PULSE 91; RESP 19; O2SAT 94
[2024-05-04] MEDS: LEVALBUTEROL HCL 1.25 MG/3 ML NEB NEB SCH (23:47)
[2024-05-04] MEDS: IPRATROPIUM BROM 0.5 MG/2.5ML INH SOL NEB PRN (23:47)
[2024-05-04 23:55] VITALS: PULSE 89; RESP 18; O2SAT 97
[2024-05-05] VITALS (22 sets, daily range): BP systolic 100–116; BP diastolic 60–76; PULSE 65–120; RESP 15–20; TEMP 97.5–98.3; O2SAT 92–100
[2024-05-05 07:48] LABS: Base Excess -1.6 mmol/L (-2.0-3.0)
[2024-05-05 08:13] LABS: Basophils # (auto) 0 10 ^3/uL (0-0.2); Basophils % (auto) 0.2 % (0.0-2.0); Eosinophils # (auto) 0 10 ^3/uL (0-0.8); Hematocrit 43.1 % (36.0-46.0); Hemoglobin 14.7 g/dL (12.2-16.2); Lymphocytes # (auto) 0.8 10 ^3/uL (0.4-5.4); Mean Corpuscular Hemoglobin 32.2 pg (28.0-32.0); Mean Corpuscular Volume 94.6 fL (80.0-100.0); Monocytes # (auto) 0.3 10 ^3/uL (0-1.3); Monocytes % (auto) 4.9 % (0.0-12.0); Neutrophils # (auto) 5.2 10 ^3/uL (1.6-8.6); Neutrophils % (auto) 82.9 % (37.0-80.0); Platelet Count (auto) 202 10^3/uL (140-450); Red Blood Cells 4.55 10^6/uL (4.0-5.20); White Blood Cell 6.3 10^3/uL (4.4-10.8)
[2024-05-05 08:24] LABS: Alanine Aminotransferase 14 U/L (7-40); Albumin 4.4 g/dL (3.2-4.8); Alkaline Phosphatase 53 U/L (46-116); Anion Gap 9 (5-15); Aspartate Aminotransferase 15 U/L (13-40); Bilirubin, Total 0.4 mg/dL (0.2-1.0); Calcium 9.3 mg/dL (8.7-10.4); Carbon Dioxide 24 mmol/L (20-31); Chloride 106 mmol/L (98-107); Potassium 4.7 mmol/L (3.5-5.1); Sodium 139 mmol/L (136-145); Total Protein 6.5 g/dL (5.7-8.2)
[2024-05-05 08:36] LABS: Blood Urea Nitrogen < 5 mg/dL (9-23); Glucose 122 mg/dL (74-106)
[2024-05-05] MEDS: IOHEXOL 350 MG/ML 100ML IJ ONE (16:39)
[2024-05-05] MEDS: cefTRIAXone 1GM/50ML D5W 50 ML IV SCH (17:00)
[2024-05-05] MEDS: AZITHROMYCIN 500MG/ 250ML 250 ML IV SCH (18:06)
--- NOTE | 2024-05-05 18:16 | DVH ---
Procedure: CT CT ANGIO CHEST CONTRAST Reason for study/Clinical History: rule out pulmonary embolism Comparison Study: None available at time of dictation. Exam Date: 05/05/2024 04:41 PM Radiation Dose Information: CT Dose: CTDI volume is 6.53 mGy. Dose-length product is 272.82 mGy*cm Contrast: Type of contrast: Omnipaque 350 Contrast inject: 50 mL Contrast wasted:0 TECHNIQUE: After the uneventful administration of intravenous contrast intravenously, CT imaging was performed through the chest. Coronal and sagittal reformations were performed by the technologist. Sagittal and coronal MIP images reconstructed and submitted for interpretation. FINDINGS: Lower Neck: Visualized portions of the thyroid gland are unremarkable. Aorta and Vasculature: Normal caliber of thoracic aorta. Lymph Nodes: No enlarged intrathoracic lymph nodes. Mediastinum: Heart size is normal. There is no pericardial effusion. The esophagus is unremarkable. Lungs: No focal consolidation, pleural effusion or significant pneumothorax. No suspicious pulmonary nodule or mass. Scarring or atelectasis right middle lung field Musculoskeletal: No acute osseous abnormality. Upper abdomen: Limited portions of the upper abdomen are unremarkable. IMPRESSION: 1. No findings of pulmonary emboli 2. No findings of pulmonary artery hypertension All CT scans at this medical facility are performed using dose modulation techniques as appropriate t o a performed exam including the following: Automated exposure control was utilized; adjustment of th e MA and/or KV according to patient size; and use of iterative reconstruction technique.
--- NOTE | 2024-05-05 22:46 | DVHPN2 ---
Progress Note - Dictate Date Seen: May 05, 2024 Medical Necessity Reason Pt with a Central, PICC or Fol: No Subjective atient seen and examined at bedside. Remains on supplemental oxygen Overnight events reviewed. vital signs Vital Sign Date Time Temp Pulse Resp B/P (MAP) Pulse Ox O2 Delivery O2 Flow Rate FiO2 05/05/24 21:00 98.0 89 19 102/60 (74) 96 98.0 05/05/24 11:40 Oxymizer 8 N/A Total Intake and Output 05/04/24 05/04/24 05/05/24 15:00 23:00 07:00 Intake Total 0 ml Balance 0 ml medications Current Medications Medications Dose Ordered Sig/Zoila Route Start Time Stop Time Status Last Admin Dose Admin Levalbuterol HCl 0.625 mg Q6HR NEB 05/05/24 00:00 05/05/24 19:06 0.625 MG Ipratropium [place] 0.5 mg Q6HPRN PRN NEB 05/04/24 21:30 05/05/24 19:06 0.5 MG Methylprednisolone Sodium Succinate 40 mg Q8HR IV 05/04/24 22:00 05/05/24 14:08 40 MG Famotidine 20 mg Q12HR IV 05/04/24 22:00 05/05/24 09:41 20 MG Acetaminophen/ Hydrocodone Bitart 1 tab Q4HP PRN PO 05/04/24 21:30 Ondansetron HCl 4 mg Q4HP PRN IV 05/04/24 21:30 Docusate Sodium 100 mg BIDPRN PRN PO 05/04/24 21:30 Acetaminophen 650 mg Q6HP PRN PO 05/04/24 21:30 Nitroglycerin 0.4 mg Q5MINP PRN SL 05/04/24 21:30 Morphine Sulfate 2 mg Q30M PRN IV 05/04/24 21:30 Azithromycin 250 ml @ 125 mls/hr DAILY IV 05/05/24 10:00 05/05/24 18:06 125 MLS/HR Ceftriaxone Sodium 50 ml @ 100 mls/hr DAILY@09 IV 05/05/24 09:00 05/05/24 17:00 100 MLS/HR objective Gen.: Patient lying in bed in no apparent distress. On supplemental oxygen. Head: Normocephalic, atraumatic. Eyes: EOMI/PERRLA. Ears: Normal hearing. Normal anatomy. Neck/trachea: Trachea midline, supple. Nose: Normal external anatomy. Mouth: Moist mucous membranes. Chest: Decreased air entry bilaterally. No wheezing or rhonchi. Cardiovascular: Positive S1, positive S2. Regular rate and rhythm. Abdomen: Positive bowel sounds in all 4 quadrants. Soft, non-tender, non- distended. : Deferred. Rectal: Deferred. Skin: Warm, dry. Intact. Extremities: 2+ radial pulses bilaterally. No lower extremity edema. Neuro: Awake, alert, oriented x3. No gross motor or sensory deficits. Cranial nerves II through XII intact. Gait not assessed. laboratory and microbiology Laboratory Tests 05/05/24 07:20 Test 05/05/24 07:20 Range/Units Serum Glucose 122 H 74-106 mg/dL Assessment/Plan Impression: Acute hypoxic respiratory failure Acute exacerbation of asthma Nicotine dependence Events: On supplemental oxygen, 8 LPM NC Improved O2 requirements Taper O2 as tolerated BiPAP PRN. Pt desaturates with exertion. Continue bronchodilators Continue steroids Continue antibiotics CTA demonstrates no e/o pulmonary embolism. Labs and imaging reviewed. Rest of plan as noted below. Plan: Supplemental oxygen Titrate to keep O2 sats above 92%. BiPAP PRN Continue bronchodilators. Pulmicort BID Continue steroids Monitor renal function. Monitor electrolytes. Supplement as necessary. Monitor ins and outs. Smoking cessation discussed for greater than 10 minutes DVT prophylaxis. Prognosis: Poor given patient's multiple co-morbidities. Rest of plan per hospitalist and other consultants. Thank you, SOCORRO Sparks, for allowing me to participate in this patient's care. Further recommendations will depend on the patient's clinical course. Please do not hesitate to contact me if you have any questions or concerns. This medical document was created using an electronic medical record system with [employer] dictation system. Although these documentations are being carefully reviewed, there may still be some phonetic and typographical changes. The errors are purely typographical, due to imperfection on the software program, and do not reflect any compromise in the patient's medical care. Plan discussed with: Patient, Other (KANU Jeter) MILES SCHNEIDER MD May 05, 2024 22:46
--- NOTE | 2024-05-05 23:07 | DVHPN2 ---
Subjective The patient is seen and examined at bedside. Still have shortness for breath with stated that she feels much better Reviewed: Care Plan, H&P, Labs, Medications, Previous Orders, Radiology Changes from previous H/P or p: No Changes Eyes: No Pain, No Vision change, No Conjunctivae inflammation, No Eyelid inflammation, No Other, No Redness ENT: No Ear pain, No Ear discharge, No Nose pain, No Nose discharge, No Nose congestion, No Mouth pain, No Mouth swelling, No Throat pain, No Throat swelling, No Other Cardiovascular: No Chest Pain, No Palpitations, No Orthopnea, No Paroxysmal Noc. Dyspnea, No Edema, No Lt Headedness, No Other Respiratory: No Cough, No Dry; Shortness of breath, SOB with excertion; No Wheezing, No Hemoptysis, No Pleuritic Pain, No Sputum; Other (SOB at rest) Gastrointestinal: No Nausea, No Vomiting, No Abdominal Pain, No Diarrhea, No Constipation, No Melena, No Hematochezia, No Other Genitourinary: No Dysuria, No Frequency, No Incontinence, No Hematuria, No Retention, No Other Musculoskeletal: No other, No neck pain, No shoulder pain, No arm pain, No back pain, No hand pain, No leg pain, No foot pain Skin: No Rash, No Lesions, No Jaundice, No Bruising, No Other Objective Vitals Vital Signs Date Time Temp Pulse Resp B/P (MAP) Pulse Ox O2 Delivery O2 Flow Rate FiO2 05/05/24 21:00 98.0 89 19 102/60 (74) 96 98.0 05/05/24 11:40 Oxymizer 8 N/A Intake/Output Intake and Output 05/05/24 07:00 Intake Total 0 ml Balance 0 ml Intake Oral 0 ml General Appearance: Alert, Oriented X3, Cooperative, No acute distress HEENT: Atraumatic, PERRLA, EOMI, Mucous membr. moist/pink Neck: Supple Lungs: Clear to auscultation, Normal air movement Cardiovascular: Regular rate, Normal S1, Normal S2, No murmurs, Gallops, Rubs Abdomen: Normal bowel sounds, Soft, No tenderness Neuro: Cranial nerves 3-12 NL Psych/Mental Status: Mental status NL Medications Current Medications Medications Dose Ordered Sig/Zoila Route Start Time Stop Time Status Last Admin Dose Admin Levalbuterol HCl 0.625 mg Q6HR NEB 05/05/24 00:00 05/05/24 19:06 0.625 MG Ipratropium [place] 0.5 mg Q6HPRN PRN NEB 05/04/24 21:30 05/05/24 19:06 0.5 MG Methylprednisolone Sodium Succinate 40 mg Q8HR IV 05/04/24 22:00 05/05/24 22:45 40 MG Famotidine 20 mg Q12HR IV 05/04/24 22:00 05/05/24 22:45 20 MG Acetaminophen/ Hydrocodone Bitart 1 tab Q4HP PRN PO 05/04/24 21:30 Ondansetron HCl 4 mg Q4HP PRN IV 05/04/24 21:30 Docusate Sodium 100 mg BIDPRN PRN PO 05/04/24 21:30 Acetaminophen 650 mg Q6HP PRN PO 05/04/24 21:30 Nitroglycerin 0.4 mg Q5MINP PRN SL 05/04/24 21:30 Morphine Sulfate 2 mg Q30M PRN IV 05/04/24 21:30 Azithromycin 250 ml @ 125 mls/hr DAILY IV 05/05/24 10:00 05/05/24 18:06 125 MLS/HR Ceftriaxone Sodium 50 ml @ 100 mls/hr DAILY@09 IV 05/05/24 09:00 05/05/24 17:00 100 MLS/HR Laboratory Results Laboratory Tests 05/05/24 07:20 Chemistry Test 05/05/24 07:20 Albumin 4.4 g/dL (3.2-4.8) Calcium Level 9.3 mg/dL (8.7-10.4) Total Protein 6.5 g/dL (5.7-8.2) LFT Test 05/05/24 07:20 Alanine Aminotransferase (ALT) 14 U/L (7-40) Alkaline Phosphatase 53 U/L (46-116) Aspartate Amino Transferase (AST) 15 U/L (13-40) Total Bilirubin 0.4 mg/dL (0.2-1.0) Blood Gas Results Test 05/05/24 07:38 Arterial Blood pH 7.401 (7.350-7.450) FiO2 % 60.0 Labs and/or images reviewed: Labs reviewed by me Assessment/Plan Assessment/Plan Tachycardia Acute respiratory failure with hypoxia Acute asthma exacerbation Generalized weakness Plan: Continuing current management. Continuing with nebulizer. I am going to add to her regimen Rocephin 1 g IV q.day and Zithromax 500 mg daily to empirically treat for possible pneumonia. I will order CTA of chest to rule out pulmonary embolism. Continuing with Solu-Medrol. Discuss with patient and her in length at bedside. Advice to follow up with the gathering machine feeder as outpatient. Plan discussed with: Patient My Orders Orders - JORGE PÉREZ MD Procedure Category Date Status Time Azithromycin 500mg/ PHA 05/05/24 In Process 250ml (Zithromax 50 10:00 Ceftriaxone 1gm/50ml PHA 05/05/24 In Process D5w (Rocephin) 09:[address] 05/05/24 Resulted Contrast 15:55 Date of Service: May 05, 2024 Billing Provider: JORGE PÉREZ MD Common Visit Codes: [id number] INP/OBS CARE(HIGH) JORGE PÉREZ MD May 05, 2024 23:07
[2024-05-06] VITALS (15 sets, daily range): BP systolic 94–141; BP diastolic 57–77; PULSE 60–98; RESP 16–19; TEMP 97.9–98.1; O2SAT 92–99
[2024-05-06] MEDS ORDERED: ALBU108A5 IN (13:17)
[2024-05-06] MEDS ORDERED: AZIT-185 PO (13:17)
[2024-05-06] MEDS ORDERED: METH4PAK PO (13:17)
--- NOTE | 2024-05-06 13:18 | DVHDS2 ---
Discharge Summary Date of Admission May 04, 2024 at 21:28 Date of Discharge: May 06, 2024 Labs/Diagnostic Data: Laboratory Results Test 05/05/24 07:38 05/05/24 07:20 05/04/24 19:44 Blood Gas Specimen Type Arterial Blood Gas Sample Site Right radial Blood Gas Patient Temperature 37.0 Arterial Blood Date Drawn [id number] Arterial Blood pH 7.401 (7.350-7.450) Arterial Blood Partial Pressure CO2 37.4 mmHg (32.0-45.0) Arterial Blood Partial Pressure O2 88.1 mmHg (83.0-108.0) Arterial Blood HCO3 22.7 mmol/L (21.0-28.0) Arterial Blood Oxygen Saturation 96.6 % (94.0-98.0) Arterial Blood Base Excess -1.6 mmol/L (-2.0-3.0) Arterial Blood Oxyhemoglobin 95.7 % (94.0-98.0) Arterial Blood Carboxyhemoglobin 0.5 % (0.5-1.5) Arterial Blood Methemoglobin 0.4 % (0.0-1.5) Karthikeyan Test Yes Blood Gas Total Hemoglobin 14.80 g/dL (12.0-16.0) Blood Gas Modality Mask - bipap FiO2 % 60.0 White Blood Count 6.3 10^3/uL (4.4-10.8) Red Blood Count 4.55 10^6/uL (4.0-5.20) Hemoglobin 14.7 g/dL (12.2-16.2) Hematocrit 43.1 % (36.0-46.0) Mean Corpuscular Volume 94.6 fL (80.0-100.0) Mean Corpuscular Hemoglobin 32.2 pg (28.0-32.0) Mean Corpuscular Hemoglobin Concent 34.0 g/dL (32.0-36.0) Red Cell Distribution Width 13.0 % (11.8-14.3) Platelet Count 202 10^3/uL (140-450) Mean Platelet Volume 9.6 fL (6.9-10.8) Neutrophils (%) (Auto) 82.9 % (37.0-80.0) Lymphocytes (%) (Auto) 12.0 % (10.0-50.0) Monocytes (%) (Auto) 4.9 % (0.0-12.0) Eosinophils (%) (Auto) 0.0 % (0.0-7.0) Basophils (%) (Auto) 0.2 % (0.0-2.0) Neutrophils # (Auto) 5.2 10 ^3/uL (1.6-8.6) Lymphocytes # (Auto) 0.8 10 ^3/uL (0.4-5.4) Monocytes # (Auto) 0.3 10 ^3/uL (0-1.3) Eosinophils # (Auto) 0 10 ^3/uL (0-0.8) Basophils # (Auto) 0 10 ^3/uL (0-0.2) Nucleated Red Blood Cells 0.0 % Sodium Level 139 mmol/L (136-145) Potassium Level 4.7 mmol/L (3.5-5.1) Chloride Level 106 mmol/L (98-107) Carbon Dioxide Level 24 mmol/L (20-31) Anion Gap 9 (5-15) Blood Urea Nitrogen < 5 mg/dL (9-23) Creatinine 0.71 mg/dL (0.550-1.02) Glomerular Filtration Rate Calc 119 mL/min (>90) BUN/Creatinine Ratio 7.0 (10.0-20.0) Serum Glucose 122 mg/dL (74-106) Calcium Level 9.3 mg/dL (8.7-10.4) Total Bilirubin 0.4 mg/dL (0.2-1.0) Aspartate Amino Transferase (AST) 15 U/L (13-40) Alanine Aminotransferase (ALT) 14 U/L (7-40) Alkaline Phosphatase 53 U/L (46-116) Total Protein 6.5 g/dL (5.7-8.2) Albumin 4.4 g/dL (3.2-4.8) Blood Gas EPAP 5 Blood Gas IPAP 12 Other Laboratory Tests 05/05/24 07:20 Final Diagnosis/Problems List Asthma exacerbation Discharge Disposition: Home Discharge Instruct/Medications Diet: Regular Activity: No Restrictions, As Tolerated Follow Up/Referral: pcp 1-2 weeks food writer per schedule Medications: zpak until finish albuterol PRN Medro dose jessa until finish Discharge Statement: "Patient was advised to return to the ER or call 911 if any headaches, dizziness, shortness of breath, chest pain, abdominal pain, bleeding, fevers, or worsening of medical condition. Patient was counseled about treatment plan, medications, possible side effects, patientverbalized understanding. All questions were answered to the best of my ability. This discharge took greater then 30 minutes in planning, reviewing documentation, counseling the patient, and discussing with other team members." ASSESSMENT ASSESSMENT Assessment Asthma exacerbation JORGE PÉREZ MD May 06, 2024 13:18
--- NOTE | 2024-05-06 23:02 | DVHPN2 ---
Progress Note - Dictate Date Seen: May 06, 2024 Medical Necessity Reason Pt with a Central, PICC or Fol: No Subjective atient seen and examined at bedside. Currently on room air Overnight events reviewed. vital signs Vital Sign Date Time Temp Pulse Resp B/P (MAP) Pulse Ox O2 Delivery O2 Flow Rate FiO2 05/06/24 16:51 98.0 76 18 94/66 (75) 93 98.0 05/06/24 13:57 Room Air* 0 21 Total Intake and Output 05/05/24 05/05/24 05/06/24 14:59 22:59 06:59 Intake Total 900 ml Output Total 200 ml Balance 900 ml -200 ml objective Gen.: Patient lying in bed in no apparent distress. On room air. Head: Normocephalic, atraumatic. Eyes: EOMI/PERRLA. Ears: Normal hearing. Normal anatomy. Neck/trachea: Trachea midline, supple. Nose: Normal external anatomy. Mouth: Moist mucous membranes. Chest: Decreased air entry bilaterally. No wheezing or rhonchi. Cardiovascular: Positive S1, positive S2. Regular rate and rhythm. Abdomen: Positive bowel sounds in all 4 quadrants. Soft, non-tender, non- distended. : Deferred. Rectal: Deferred. Skin: Warm, dry. Intact. Extremities: 2+ radial pulses bilaterally. No lower extremity edema. Neuro: Awake, alert, oriented x3. No gross motor or sensory deficits. Cranial nerves II through XII intact. Gait not assessed. laboratory and microbiology Laboratory Tests 05/05/24 07:20 Test 05/05/24 07:20 Range/Units Serum Glucose 122 H 74-106 mg/dL Assessment/Plan Impression: Acute hypoxic respiratory failure Acute exacerbation of asthma Nicotine dependence Eosinophilic asthma Events: Tapered off supplemental O2 - on room air No respiratory distress. Continue bronchodilators Continue steroids Continue antibiotics Disposition per hospitalist. Follow up in 2-3 weeks in Pulmonary Clinic. Labs and imaging reviewed. Rest of plan as noted below. Plan: Supplemental oxygen PRN Titrate to keep O2 sats above 92%. Continue bronchodilators. Pulmicort BID Continue steroids Monitor renal function. Monitor electrolytes. Supplement as necessary. Monitor ins and outs. Smoking cessation discussed for greater than 10 minutes No desire to quit at this time Of note, eosinophils were 1150 DVT prophylaxis. Prognosis: Guarded given patient's multiple co-morbidities. Rest of plan per hospitalist and other consultants. Thank you, SOCORRO Sparks, for allowing me to participate in this patient's care. Further recommendations will depend on the patient's clinical course. Please do not hesitate to contact me if you have any questions or concerns. This medical document was created using an electronic medical record system with [employer] dictation system. Although these documentations are being carefully reviewed, there may still be some phonetic and typographical changes. The errors are purely typographical, due to imperfection on the software program, and do not reflect any compromise in the patient's medical care. Plan discussed with: Patient, Other (KANU Jeter) MILES SCHNEIDER MD May 06, 2024 23:02
== END 2024-05-06 17:30 | disposition home or self-care (01) | DRG 189 ==
LOC: EDBD 18:54 → ER 18:54 → TELE 21:28 → TELE-WESTW 21:35
PROVIDERS: ADMIT Nurse Practitioner Family; ATTEND Nurse Practitioner Family
PROC: 5A09357 Assistance with Respiratory Ventilation, Less than 24 Consecutive Hours, Continuous Positive Airway Pressure (ICD-10-PCS; principal; 2024-05-04)
PROC: 5A09357 Assistance with Respiratory Ventilation, Less than 24 Consecutive Hours, Continuous Positive Airway Pressure (ICD-10-PCS; 2024-05-05)
DX: J96.01 Acute respiratory failure with hypoxia (principal); J45.41 Moderate persistent asthma with (acute) exacerbation; J82.83 Eosinophilic asthma; F17.210 Nicotine dependence, cigarettes, uncomplicated
CPT/HCPCS: 36415; 36600; 71045; 71275; 80048; 80053; 82805; 85025; 94640; 94660; 99291; G0378; J3490

== ENCOUNTER 2024-05-20 21:35 | Inpatient (IN) | payer OTHER, MEDICAID ==
[~2024-05-20] VITALS: Ht 153.2 cm; Wt 69.0 kg
[~2024-05-20 21:35] MED LIST changes: +AZIT-185 PO; -AZIT500T PO; +METH4PAK PO; -PRED20TA2 PO
[2024-05-20] MEDS: methylPREDNISolone SOD SUCC 125 MG/2 ML VL IV ONE ×2 (21:49→22:57)
[2024-05-20] MEDS: IPRATROPIUM BROM 0.5 MG/2.5ML INH SOL NEB ONE (21:53)
[2024-05-20] MEDS: ALBUTEROL SULF 2.5 MG/0.5ML(0.5%) NEB SOLN NEB ONE (21:53)
[2024-05-20 22:05] LABS: Basophils # (auto) 0.2 10 ^3/uL (0-0.2); Basophils % (auto) 0.8 % (0.0-2.0); Eosinophils # (auto) 1.5 10 ^3/uL (0-0.8); Eosinophils % (auto) 7.6 % (0.0-7.0); Hematocrit 44.8 % (36.0-46.0); Hemoglobin 15.2 g/dL (12.2-16.2); Lymphocytes % (auto) 10.6 % (10.0-50.0); Mean Corpuscular Hemoglobin 32.1 pg (28.0-32.0); Mean Corpuscular Volume 94.4 fL (80.0-100.0); Monocytes # (auto) 2.3 10 ^3/uL (0-1.3); Monocytes % (auto) 11.8 % (0.0-12.0); Neutrophils # (auto) 13.4 10 ^3/uL (1.6-8.6); Neutrophils % (auto) 69.2 % (37.0-80.0); Nucleated Red Blood Cells % 0.1 %; Platelet Count (auto) 212 10^3/uL (140-450); Red Blood Cells 4.74 10^6/uL (4.0-5.20); White Blood Cell 19.3 10^3/uL (4.4-10.8)
--- NOTE | 2024-05-20 22:06 | DVH ---
CHEST RADIOGRAPH Indication: sob Technique: Single frontal view of the chest was obtained COMPARISON: XY CHEST PORTABLE on DOS: 05/04/24, XY CHEST XRAY 1 VIEW on DOS: 04/11/24 FINDINGS: Lines and Tubes: None Lungs: Clear. Pleura: No effusion. No pneumothorax. Cardiomediastinal contours: Unremarkable IMPRESSION: No abnormality demonstrated.
[2024-05-20 22:21] LABS: Alanine Aminotransferase 16 U/L (7-40); Albumin 4.4 g/dL (3.2-4.8); Alkaline Phosphatase 53 U/L (46-116); Anion Gap 8 (5-15); Aspartate Aminotransferase 19 U/L (13-40); Calcium 9.4 mg/dL (8.7-10.4); Carbon Dioxide 26 mmol/L (20-31); Chloride 104 mmol/L (98-107); Potassium 4.4 mmol/L (3.5-5.1); Sodium 138 mmol/L (136-145)
[2024-05-20 22:22] LABS: Bilirubin, Total 0.3 mg/dL (0.2-1.0); Blood Urea Nitrogen 7 mg/dL (9-23); Glucose 116 mg/dL (74-106); Total Protein 6.6 g/dL (5.7-8.2)
[2024-05-20] MEDS ORDERED: MAGNESIUM SULFATE 1GM/100ML 100 ML IV STA (22:31)
[2024-05-20 22:32] VITALS: PULSE 148; RESP 25; O2SAT 100
[2024-05-20] MEDS ORDERED: VANCOMYCIN PER PHARMACY 0 MG IV SCH (22:45)
[2024-05-20] MEDS: MAGNESIUM SULFATE 1GM/100ML 100 ML IV ONE ×2 (22:47→23:02)
--- NOTE | 2024-05-20 23:05 | ED.PDOC ---
History of Present Illness HPI Comments 28 y/o M with a Hx of asthma, is BIBA for c/o shortness of breath and wheezing, today. Per EMS report, patient endorses on sudden and unprovoked onset of symptoms, this evening, with no relief or improvement with at-home asthma inhaler use. Patient was noted to have been found by EMS staff pale in appearance, with cyanotic lips, and tachycardic and a SpO2 of 63% on room air. En route, patient was stated to have been given 1x DuoNeb breathing Tx and then placed on CPAP, with SpO2 improving to 81%. Patient is also stated to have had previous ED hospital visits for same complaints on 04/11/24 and 05/04/24, with the later having an accompanying admission that she was discharged on 05/06/24. Karen burnette has no reported chest pain, cough, fever, chills, or other associated symptoms or modifiers at this time. Chief Complaint: Shortness of Breath Time Seen by MD: 21:35 Primary Care Provider: unknown Reviewed Notes: Nurses Notes, Sales Operations Specialist Notes, Medications, Allergies Allergies: Coded Allergies: NO KNOWN ALLERGIES (Unverified , 04/11/24) Home Meds Active Scripts Methylprednisolone (Medrol Dosepak) 4 Mg Devin, 4 MG PO UD, #21 TAB UAD Prov:JORGE PÉREZ MD 05/06/24 Azithromycin (ZITHROMAX TABLET) 250 Mg Tb, 250 MG PO DAILY, #6 TAB take 2 tabs the first day and then 1 tab per day until finish Prov:JORGE PÉREZ MD 05/06/24 Albuterol Sulfate (Albuterol Sulfate Hfa) 108 Mcg/Act Aer, 108 MCG IN BID PRN, #1 AER 5 Refills Prov:JORGE PÉREZ MD 05/06/24 Information Source: Patient, Emergency Med Personnel Mode of Arrival: Ambulatory Severity: Moderate Timing: Hours Duration: Since onset Prehospital treatment: 12 Lead EKG, Breathing Tx, Workers Compensation Paralegal, Oxygen Review of Systems: REVIEW OF SYSTEMS: No fever, no chills, or fatigue HEENT: No sore throat, no earache, no congestion, no neck pain. Cardiac: No chest pain. No palpitations. Lungs: Shortness of breath, wheezing, no cough. GI: No nausea, no vomiting, no diarrhea, no constipation, no abdominal pain : No dysuria, frequency, or urgency. No hematuria. Musculoskeletal: No joint pain , no joint swelling, no extremity edema. Skin: No rash, no itching. Neuro: No headache, no dizziness, no weakness Vital Signs Vital Signs Date Time Temp Pulse Resp B/P (MAP) Pulse Ox O2 Delivery O2 Flow Rate FiO2 05/21/24 04:00 92 05/21/24 03:56 86/48 97 Facial BiPAP Mask 70 05/21/24 01:00 100.1 20 100.1 Physical Exam General: Appears lethargic and distressed. Skin: Skin in warm, dry and intact. Appropriate color for ethnicity. HEENT: The head is normocephalic and atraumatic. Conjunctivae are clear without exudates or hemorrhage. Sclera is non-icteric. EOM are intact. No signs of nystagmus. Eyelids are normal in appearance without swelling or lesions. Oral mucosa is pink and moist Neck: The neck is supple with normal range of motion. No JVD. Cardiac: Heart rate and rhythm are normal. No murmurs, gallops, or rubs are auscultated. Respiratory: Labored breathing, with accessory muscle use and wheezing in bilateral lung knott. No rales or rhonchi. Abdominal: Abdomen is soft, non-tender without distention. Bowel sounds are present and normoactive in all four quadrants. Extremities: Upper and lower extremities are atraumatic in appearance without deformity or edema. Neurological: The patient is awake, alert and oriented to person, place, and time with normal speech. Speech is clear. There is no facial asymmetry. Psychiatric: Appropriate mood and affect. Good judgement and insight. No visual or auditory hallucinations. Past Medical History PAST MEDICAL HISTORY: Asthma Past Medical History (Other): tachycardia, acute respiratory failure with hypoxia Surgical History: Denies all surgeries SPRAYER HAND History: Denies all SPRAYER HAND Hx Family History Family History: Unknown Social History Smoker: Cigarettes Alcohol: Denies ETOH Use Drugs: Denies Drug Use Lives In: Home Was a procedure done? Was a procedure done?: No Differential Dx Considerations may include: Differential diagnoses considered includebut arenot limited to acute Bronchitis, Asthma, COPD, Pneumothorax, PE, CHF, Pulmonary HTN, Anemia, CO Poisoning, Methemoglobinemia, Hyperventilation, Metabolic Acidosis, Pulmonary Edema, Pneumonia, ACS, Pericardial Tamponade, Anxiety, other X-Ray, Labs, Meds, VS Vital Signs Date Time Temp Pulse Resp B/P (MAP) Pulse Ox O2 Delivery O2 Flow Rate FiO2 05/21/24 04:00 92 05/21/24 03:56 94 86/48 97 Facial BiPAP Mask 70 05/21/24 02:40 69 93/47 98 Facial BiPAP Mask 70 05/21/24 01:00 100.1 92 20 86/48 97 70 100.1 05/21/24 00:10 120 96/61 94 Facial BiPAP Mask 70 05/21/24 00:00 121 05/20/24 23:12 132 120/60 Facial BiPAP Mask 30 05/20/24 21:45 31 99 Bi-Pap+ 100 100 05/20/24 21:40 151 146/87 Facial BiPAP Mask 100 05/20/24 21:35 100.1 161 24 94/46 (62) 67 Lab Test 05/20/24 23:47 05/20/24 23:00 05/20/24 21:58 Range/Units Lactic Acid Level 1.5 0.4-2.0 mmol/L Troponin I High Sensitivity 5 < 3 L </=34 ng/L Blood Gas Specimen Type Arterial Blood Gas Sample Site Right radial Blood Gas Patient Temperature 37.0 Arterial Blood Date Drawn [id number] Arterial Blood pH 7.367 7.350-7.450 Arterial Blood Partial Pressure CO2 41.5 32.0-45.0 mmHg Arterial Blood Partial Pressure O2 458.0 *H 83.0-108.0 mmHg Arterial Blood HCO3 23.3 21.0-28.0 mmol/L Arterial Blood Oxygen Saturation 99.7 H 94.0-98.0 % Arterial Blood Base Excess -2.0 -2.0-3.0 mmol/L Arterial Blood Oxyhemoglobin 98.6 H 94.0-98.0 % Arterial Blood Carboxyhemoglobin 0.7 0.5-1.5 % Arterial Blood Methemoglobin 0.4 0.0-1.5 % Karthikeyan Test Modified Blood Gas Total Hemoglobin 15.20 12.0-16.0 g/dL Blood Gas Set Respiration Rate 14.0 Blood Gas Modality Mask - bipap Blood Gas Spontaneous Rate 26 FiO2 % 100.0 Blood Gas Spontaneous Tidal Volume 713 Blood Gas EPAP 5 Blood Gas IPAP 14 Bl Gas Inspiratory/Expiratory Ratio 1:2 Blood Gas Critical Value Read Back Yes Blood Gas Notified Whom joaquina Messer Blood Gas Notified Time [id number] Blood Gas Notified By Rt, sekou sheridan White Blood Count 19.3 H 4.4-10.8 10^3/uL Red Blood Count 4.74 4.0-5.20 10^6/uL Hemoglobin 15.2 12.2-16.2 g/dL Hematocrit 44.8 36.0-46.0 % Mean Corpuscular Volume 94.4 80.0-100.0 fL Mean Corpuscular Hemoglobin 32.1 H 28.0-32.0 pg Mean Corpuscular Hemoglobin Concent 34.0 32.0-36.0 g/dL Red Cell Distribution Width 13.0 11.8-14.3 % Platelet Count 212 140-450 10^3/uL Mean Platelet Volume 9.2 6.9-10.8 fL Neutrophils (%) (Auto) 69.2 37.0-80.0 % Lymphocytes (%) (Auto) 10.6 10.0-50.0 % Monocytes (%) (Auto) 11.8 0.0-12.0 % Eosinophils (%) (Auto) 7.6 H 0.0-7.0 % Basophils (%) (Auto) 0.8 0.0-2.0 % Neutrophils # (Auto) 13.4 H 1.6-8.6 10 ^3/uL Lymphocytes # (Auto) 2.0 0.4-5.4 10 ^3/uL Monocytes # (Auto) 2.3 H 0-1.3 10 ^3/uL Eosinophils # (Auto) 1.5 H 0-0.8 10 ^3/uL Basophils # (Auto) 0.2 0-0.2 10 ^3/uL Nucleated Red Blood Cells 0.1 % Sodium Level 138 136-145 mmol/L Potassium Level 4.4 3.5-5.1 mmol/L Chloride Level 104 98-107 mmol/L Carbon Dioxide Level 26 20-31 mmol/L Anion Gap 8 5-15 Blood Urea Nitrogen 7 L 9-23 mg/dL Creatinine 0.70 0.550-1.02 mg/dL Glomerular Filtration Rate Calc 121 >90 mL/min BUN/Creatinine Ratio 10.0 10.0-20.0 Serum Glucose 116 H 74-106 mg/dL Calcium Level 9.4 8.7-10.4 mg/dL Total Bilirubin 0.3 0.2-1.0 mg/dL Aspartate Amino Transferase (AST) 19 13-40 U/L Alanine Aminotransferase (ALT) 16 7-40 U/L Alkaline Phosphatase 53 46-116 U/L B-Type Natriuretic Peptide 9.55 0-100 pg/mL Total Protein 6.6 5.7-8.2 g/dL Albumin 4.4 3.2-4.8 g/dL Current Medications Medications (Trade) Dose Ordered Sig/Zoila Route Start Time Stop Time Status Last Admin Albuterol (Ventolin Medneb) 5 mg ONCE ONCE NEB 05/20/24 21:45 05/20/24 21:46 DC 05/20/24 21:53 Ipratropium [place] (Atrovent Medneb) 0.5 mg ONCE ONCE NEB 05/20/24 21:45 05/20/24 21:46 DC 05/20/24 21:53 Methylprednisolone Sodium Succinate (Solu Medrol) 125 mg ONCE ONCE IV 05/20/24 21:45 05/20/24 21:46 DC 05/20/24 21:49 Magnesium Sulfate/ Dextrose 100 ml @ 0 mls/hr ONCE ONCE IV 05/20/24 22:45 05/20/24 22:46 DC 05/20/24 22:47 Magnesium Sulfate/ Dextrose 100 ml @ 0 mls/hr ONCE ONCE IV 05/20/24 22:45 05/20/24 22:46 DC 05/20/24 23:02 Sodium Chloride 1,000 ml @ 1,700 mls/hr Q36M ONCE IV 05/20/24 22:45 05/20/24 23:20 DC 05/20/24 23:25 Sodium Chloride 1,000 ml @ 130 mls/hr Q7H42M ONCE IV 05/20/24 22:45 05/21/24 06:26 05/21/24 00:19 Piperacillin Sod/ Tazobactam Sod 100 ml @ 100 mls/hr ONCE ONCE IV 05/20/24 22:45 05/20/24 23:44 DC 05/20/24 23:32 Vancomycin HCl 250 ml @ 150 mls/hr ONCE ONCE IV 05/21/24 00:00 05/21/24 01:39 DC 05/21/24 01:36 [facility] [id number] [facility] [address] Ph: [phone] DIAGNOSTIC IMAGING Diagnostic Imaging Report : [id number] Signed PATIENT: JHON MCCURDY ACCT: [id number] UNIT: [id number] : 1995 LOC: ER ROOM / BED: / AGE / SEX: 28 / F ADM STATUS: REG ER SERVICE 39 ORDERING PHYSICIAN: MAMI THORNE MD PROCEDURE(s): CXR1 - CHEST XRAY 1 VIEW REASON: sob ORDER NUMBER(s): [id number], ACCESSION NUMBER(s): [id number] CHEST RADIOGRAPH Indication: sob Technique: Single frontal view of the chest was obtained COMPARISON: XY CHEST PORTABLE on DOS: 05/04/24, XY CHEST XRAY 1 VIEW on DOS: 04/11/24 FINDINGS: Lines and Tubes: None Lungs: Clear. Pleura: No effusion. No pneumothorax. Cardiomediastinal contours: Unremarkable IMPRESSION: No abnormality demonstrated. ATED BY: QUINN WILKINS MD DICTATED DATE/TIME: 05/20/242202 SIGNED BY: QUINN WILKINS MD SIGNED DATE/TIME: 05/20/242202 CC: Time of 1ST Reevaluation: 22:05 Reevaluation 1ST: Unchanged Patient Education/Counseling: Diagnosis, Treatment Family Education/Counseling: No Family Present Departure 1 Departure Time of Disposition: 02:42 Impression: Primary Impression: Acute asthma exacerbation Additional Impressions: Acute respiratory failure with hypoxia Suspected sepsis Disposition: ADMITTED INPATIENT Condition: Serious Comments 28-year-old female who presented to the emergency department in respiratory distress. Suspected asthma exacerbation. She was started on BiPAP, given steroids, IV magnesium, bronchodilator. Antibiotics in administered for suspected sepsis given fever, leukocytosis. Patient is stabilized. Patient admitted for further treatment, evaluation and monitoring. Extensive evaluation was performed in attempt to identify or rule out: (See differential diagnosis section) The following tests were ordered, and results were reviewed by me: (See diagnostic results section) The following test were independently interpreted by me: EKG, chest x-ray possible pneumonia I reviewed and agreed with the following test results read by other providers: N/A I reviewed the following notes from the pt's past medical encounters: N/A Additional information was gathered from interviewing the following independent historians: N/A Discussion of management or test interpretation with external physician/other qualified health care director rn: N/A Address an acute or chronic illness that poses a threat to life or bodily function: Hypoxic respiratory failure, asthma exacerbation Decision regarding hospitalization or escalation of hospital level of care: Risk and benefits of admission for further treatment of patient's condition was considered. Due to patient's current clinical condition, high risk of decline and poor outcome if discharged and need for further inpatient management and monitoring, patient will be admitted to the hospital. Drug therapy requiring intensive monitoring for toxicity: IV magnesium Parenteral controlled substances: N/A Decision regarding elective major surgery with identified patient or procedure risk factors: N/A Decision regarding emergency major surgery: N/A Decision not to resuscitate or to de-escalate care because of poor prognosis: N/A Diagnosis or treatment significantly limited by social determinants of health: N/A Critical Care Note Critical Care Time?: Yes (35 min-critical care time only) Stability Stability form required: No Heart Score Heart Score: Heart Score Response (Comments) Value History N/A 0 EKG N/A 0 Age N/A 0 Risk Factors N/A 0 Troponin N/A 0 Total 0 I personally scribed for MAMI THORNE MD ([email or web address]) on 05/20/24 at 23:05. Electronically submitted by Rigoberto Fleming ([email or web address]). I personally scribed for MAMI THORNE MD ([email or web address]) on 05/21/24 at 01:59. Electronically submitted by Rigoberto Fleming ([email or web address]). MAMI THORNE MD May 20, 2024 23:05
[2024-05-20] MEDS: SODIUM CHLORIDE 0.9% 1,000 ML IV ONE (23:25)
[2024-05-20] MEDS: PIPERACILLIN-TAZO 4.5GM 100 ML IV ONE (23:32)
[2024-05-21] VITALS (16 sets, daily range): BP systolic 86–106; BP diastolic 47–65; PULSE 69–120; RESP 14–20; TEMP 97.9–100.1; O2SAT 91–98
[2024-05-21] MEDS: SODIUM CHLORIDE 0.9% 1,000 ML IV ONE (00:19)
[2024-05-21] MEDS: VANCOMYCIN 1GM/250ML KIT 250 ML IV ONE (01:36)
[2024-05-21 05:21] LABS: Urine Bacteria None Seen /hpf (None Seen)
--- NOTE | 2024-05-21 05:36 | DVHHP2 ---
History of Present Illness Reason for Visit: Shortness for breath History of Present Illness 28-year-old male presents for evaluation of shortness for breath. Patient with a history of asthma reports a one day history of worsening shortness for breath not being relieved with his inhaler and nebulizer. He denies cough or fever. Chest pain or palpitations. No other acute complaints reported. Past Medical History Asthma Past Surgical History Denies Family History Noncontributory Smoke: <1 pack per day ALCOHOL: none Drugs: None Lives: with Family Review of Systems Review of Systems Review of systems are currently negative otherwise addressed in HPI. Allergies: Coded Allergies: NO KNOWN ALLERGIES (Unverified , 04/11/24) Medications Current Medications Medications Dose Ordered Sig/Zoila Route Start Time Stop Time Status Last Admin Dose Admin Magnesium Sulfate/ Dextrose 100 ml @ 400 mls/hr ONCE STAT IV 05/20/24 22:31 05/20/24 22:45 Cancel Vancomycin HCl 0 ml @ 0 mls/hr UD IV 05/20/24 22:45 UNV Exam Vital Signs Vital Signs Date Time Temp Pulse Resp B/P (MAP) Pulse Ox O2 Delivery O2 Flow Rate FiO2 05/21/24 04:00 92 05/21/24 03:56 86/48 97 Facial BiPAP Mask 70 05/21/24 01:00 100.1 20 100.1 Exam Gen: 28-year-old female in mild distress. Skin: Warm, dry, normal color and texture, no rash. HEENT: Normocephalic atraumatic, mucous membranes moist and pink. Neck: Cervical and supraclavicular nodes normal without enlargement, trachea is midline, thyroid gland is normal without masses. Pulmonary: Bilateral wheeze Cardiac: Regular rate and rhythm. No murmur Abdomen: Soft, nontender, nondistended, bowel sounds present all 4 quadrants, no guarding, no rigidity, no organomegaly. Extremities: No cyanosis, clubbing, no edema Neuro: Cranial nerves II through XII grossly intact, normal affect and speech, no focal motor deficits. Labs/Xrays ORDERING PHYSICIAN: MAMI THORNE MD PROCEDURE(s): CXR1 - CHEST XRAY 1 VIEW REASON: sob ORDER NUMBER(s): [id number], ACCESSION NUMBER(s): [id number] CHEST RADIOGRAPH Indication: sob Technique: Single frontal view of the chest was obtained COMPARISON: XY CHEST PORTABLE on DOS: 05/04/24, XY CHEST XRAY 1 VIEW on DOS: 04/11/24 FINDINGS: Lines and Tubes: None Lungs: Clear. Pleura: No effusion. No pneumothorax. Cardiomediastinal contours: Unremarkable IMPRESSION: No abnormality demonstrated. Labs Test 05/21/24 05:00 05/21/24 04:59 05/20/24 23:47 05/20/24 23:00 Range/Units Lactic Acid Level 1.5 0.4-2.0 mmol/L Troponin I High Sensitivity 5 </=34 ng/L Blood Gas Specimen Type Arterial Blood Gas Sample Site Right radial Blood Gas Patient Temperature 37.0 Arterial Blood Date Drawn [id number] Arterial Blood pH 7.367 7.350-7.450 Arterial Blood Partial Pressure CO2 41.5 32.0-45.0 mmHg Arterial Blood Partial Pressure O2 458.0 *H 83.0-108.0 mmHg Arterial Blood HCO3 23.3 21.0-28.0 mmol/L Arterial Blood Oxygen Saturation 99.7 H 94.0-98.0 % Arterial Blood Base Excess -2.0 -2.0-3.0 mmol/L Arterial Blood Oxyhemoglobin 98.6 H 94.0-98.0 % Arterial Blood Carboxyhemoglobin 0.7 0.5-1.5 % Arterial Blood Methemoglobin 0.4 0.0-1.5 % Karthikeyan Test Modified Blood Gas Total Hemoglobin 15.20 12.0-16.0 g/dL Blood Gas Set Respiration Rate 14.0 Blood Gas Modality Mask - bipap Blood Gas Spontaneous Rate 26 FiO2 % 100.0 Blood Gas Spontaneous Tidal Volume 713 Blood Gas EPAP 5 Blood Gas IPAP 14 Bl Gas Inspiratory/Expiratory Ratio 1:2 Blood Gas Critical Value Read Back Yes Blood Gas Notified Whom joaquina Messer Blood Gas Notified Time [id number] Blood Gas Notified By sekou Sherman Test 05/20/24 21:58 Range/Units White Blood Count 19.3 H 4.4-10.8 10^3/uL Red Blood Count 4.74 4.0-5.20 10^6/uL Hemoglobin 15.2 12.2-16.2 g/dL Hematocrit 44.8 36.0-46.0 % Mean Corpuscular Volume 94.4 80.0-100.0 fL Mean Corpuscular Hemoglobin 32.1 H 28.0-32.0 pg Mean Corpuscular Hemoglobin Concent 34.0 32.0-36.0 g/dL Red Cell Distribution Width 13.0 11.8-14.3 % Platelet Count 212 140-450 10^3/uL Mean Platelet Volume 9.2 6.9-10.8 fL Neutrophils (%) (Auto) 69.2 37.0-80.0 % Lymphocytes (%) (Auto) 10.6 10.0-50.0 % Monocytes (%) (Auto) 11.8 0.0-12.0 % Eosinophils (%) (Auto) 7.6 H 0.0-7.0 % Basophils (%) (Auto) 0.8 0.0-2.0 % Neutrophils # (Auto) 13.4 H 1.6-8.6 10 ^3/uL Lymphocytes # (Auto) 2.0 0.4-5.4 10 ^3/uL Monocytes # (Auto) 2.3 H 0-1.3 10 ^3/uL Eosinophils # (Auto) 1.5 H 0-0.8 10 ^3/uL Basophils # (Auto) 0.2 0-0.2 10 ^3/uL Nucleated Red Blood Cells 0.1 % Sodium Level 138 136-145 mmol/L Potassium Level 4.4 3.5-5.1 mmol/L Chloride Level 104 98-107 mmol/L Carbon Dioxide Level 26 20-31 mmol/L Anion Gap 8 5-15 Blood Urea Nitrogen 7 L 9-23 mg/dL Creatinine 0.70 0.550-1.02 mg/dL Glomerular Filtration Rate Calc 121 >90 mL/min BUN/Creatinine Ratio 10.0 10.0-20.0 Serum Glucose 116 H 74-106 mg/dL Calcium Level 9.4 8.7-10.4 mg/dL Total Bilirubin 0.3 0.2-1.0 mg/dL Aspartate Amino Transferase (AST) 19 13-40 U/L Alanine Aminotransferase (ALT) 16 7-40 U/L Alkaline Phosphatase 53 46-116 U/L B-Type Natriuretic Peptide 9.55 0-100 pg/mL Total Protein 6.6 5.7-8.2 g/dL Albumin 4.4 3.2-4.8 g/dL Assessment/Plan Assessment/Plan Assessment Acute on chronic hypoxic respiratory failure Status asthmaticus Leukocytosis Plan Admit the patient to telemetry hospitalist Jairo jovel Rocephin/azithromycin Continue treatment per orders. Plan discussed with: Patient Date of Service: May 21, 2024 Billing Provider: TASHA JORDAN Common Visit Codes: [id number] INP/OBS CARE (HIGH) TASHA JORDAN May 21, 2024 05:36
[2024-05-21] MEDS ORDERED: ONDANSETRON HCL 4 MG/2 ML VIAL IV PRN (05:45)
[2024-05-21] MEDS ORDERED: ACETAMINOPHEN 325 MG TAB PO PRN (05:45)
[2024-05-21] MEDS ORDERED: TEMAZEPAM 15 MG CAP PO PRN (05:45)
[2024-05-21] MEDS ORDERED: MORPHINE SULFATE INJ 2 MG/ml SYRG IV PRN (05:45)
[2024-05-21] MEDS ORDERED: NITROGLYCERIN 0.4 MG SL TAB SL PRN (05:45)
[2024-05-21 05:50] LABS: Urine Blood Negative /uL (Negative); Urine Clarity Clear (Clear); Urine Color Light-Yellow (Yellow); Urine Protein, UAD Negative (Negative); Urine Specific Gravity 1.017 (1.001-1.035); Urine Squamous Epithelial Cell FEW /hpf (<5); Urine Urobilinogen Normal (Negative); Urine WBC 2 /HPF (0-5)
[2024-05-21 06:32] LABS: COVID19 ANTIGEN SOFIA FIA NEGATIVE (NEGATIVE); Rapid Influenza A Negative (Negative); Rapid Influenza B Negative (Negative)
[2024-05-21] MEDS: ALBUTEROL SULF 2.5 MG/0.5ML(0.5%) NEB SOLN NEB PRN (07:01)
[2024-05-21] MEDS: cefTRIAXone 1GM/50ML D5W 50 ML IV SCH (09:29)
[2024-05-21] MEDS: methylPREDNISolone SOD SUCC 40 MG/ML VL IV SCH (09:30)
[2024-05-21] MEDS: IPRATROPIUM BROM 0.5 MG/2.5ML INH SOL NEB PRN (11:37)
[2024-05-21] MEDS: IPRATROPIUM BROM 0.5 MG/2.5ML INH SOL NEB SCH (11:40)
[2024-05-21] MEDS: ALBUTEROL SULF 2.5 MG/0.5ML(0.5%) NEB SOLN NEB SCH (11:40)
[2024-05-21] MEDS: VANCOMYCIN 1.25GM/250ML 250 ML IV SCH (14:04)
--- NOTE | 2024-05-21 15:52 | DVHPN2 ---
Subjective Continues to report shortness of breath and wheezing. Reviewed: Care Plan, H&P, Labs, Medications Changes from previous H/P or p: No Changes General: Per HPI Objective Vitals Vital Signs Date Time Temp Pulse Resp B/P (MAP) Pulse Ox O2 Delivery O2 Flow Rate FiO2 05/21/24 12:00 88 14 93/54 (67) 93 05/21/24 11:40 Oxymizer 10.0 05/21/24 11:40 72 72 05/21/24 07:30 97.7 97.7 Intake/Output Intake and Output 05/21/24 07:00 Intake Total 2460 ml Balance 2460 ml Intake IV Total 2460 ml General Appearance: Alert, Oriented X3, Cooperative, mild distress HEENT: Atraumatic, PERRLA Lungs: Normal air movement, Other (Inspiratory and expiratory wheezing. Currently on Oxymizer at 6 liters/minute) Cardiovascular: Regular rate, Normal S1, Normal S2, Other (Regular heart rate) Abdomen: Normal bowel sounds, Soft Back: Flank Tenderness, Midline Tenderness Musculoskeletal: Normal sensory function, Normal motor function Neuro: Normal gait, Normal speech Psych/Mental Status: Mental status NL, Mood NL Medications Current Medications Medications Dose Ordered Sig/Zoila Route Start Time Stop Time Status Last Admin Dose Admin Magnesium Sulfate/ Dextrose 100 ml @ 400 mls/hr ONCE STAT IV 05/20/24 22:31 05/20/24 22:45 Cancel Vancomycin HCl 0 ml @ 0 mls/hr UD IV 05/20/24 22:45 Ceftriaxone Sodium 50 ml @ 100 mls/hr DAILY@09 IV 05/21/24 09:00 05/21/24 09:29 100 MLS/HR Methylprednisolone Sodium Succinate 40 mg BID IV 05/21/24 10:00 05/21/24 09:30 40 MG Temazepam 15 mg QHSP PRN PO 05/21/24 05:45 Ondansetron HCl 4 mg Q4HP PRN IV 05/21/24 05:45 Acetaminophen 650 mg Q6HP PRN PO 05/21/24 05:45 Nitroglycerin 0.4 mg Q5MINP PRN SL 05/21/24 05:45 Morphine Sulfate 2 mg Q30M PRN IV 05/21/24 05:45 Albuterol 2.5 mg Q6HR NEB 05/21/24 12:00 Ipratropium [place] 0.5 mg Q6HR NEB 05/21/24 12:00 Vancomycin HCl 250 ml @ 200 mls/hr Q12H IV 05/21/24 14:00 05/21/24 14:04 200 MLS/HR Laboratory Results Laboratory Tests 05/20/24 21:58 Chemistry Test 05/20/24 21:58 Albumin 4.4 g/dL (3.2-4.8) Calcium Level 9.4 mg/dL (8.7-10.4) Total Protein 6.6 g/dL (5.7-8.2) Cardiac Markers Test 05/20/24 21:58 B-Type Natriuretic Peptide 9.55 pg/mL (0-100) LFT Test 05/20/24 21:58 Alanine Aminotransferase (ALT) 16 U/L (7-40) Alkaline Phosphatase 53 U/L (46-116) Aspartate Amino Transferase (AST) 19 U/L (13-40) Total Bilirubin 0.3 mg/dL (0.2-1.0) Urinalysis Test 05/21/24 05:00 Urine Color Light-yellow (Yellow) Urine Clarity Clear (Clear) Urine pH 5.0 (5.0-9.0) Urine Specific [place] 1.017 (1.001-1.035) Urine Protein Negative (Negative) Urine Ketones Negative (Negative) Urine Blood Negative /uL (Negative) Urine Nitrite Negative (Negative) Urine Bilirubin Negative (Negative) Urine Urobilinogen Normal mg/dL (Negative) Urine Leukocyte Esterase Negative /uL (Negative) Urine RBC 1 /hpf (0 - 4) Urine Microscopic WBC 2 /HPF (0-5) Urine Squamous Epithelial Cells Few /hpf (<5) Urine Bacteria None seen /hpf (None Seen) Urine Glucose Normal mg/dL (Normal) Urine Test Negative (Negative) Blood Gas Results Test 05/20/24 23:00 Arterial Blood pH 7.367 (7.350-7.450) FiO2 % 100.0 Labs and/or images reviewed: Labs reviewed by me, Image(s) reviewed by me Assessment/Plan Assessment/Plan Impression: -acute hypoxic respiratory failure -recent pneumonia -asthma exacerbation -irregular heartbeat, questionable multifocal atrial tachycardia/wandering atrial pacemaker -leukocytosis Plan: -12 lead ECG -continue bronchodilators -add Pulmicort -continue Solu-Medrol -repeat labs and chest x-ray in a.m. -continue weaning O2 supplementation to keep saturation greater than 93% Total time spent with patient discussing and formulating plan of care: 35 minutes. This medical document was created using an electronic medical record system with [employer] dictation system. Although this document has been carefully reviewed, there may still be some phonetic and typographical errors. These areas are purely typographical due to imperfections of the software programs, and do not reflect any compromise in the patient's medical care. Plan discussed with: Patient, Other (RN) My Orders Orders - JAROD BALDERRAMA NP Procedure Category Date Status Time Electrocardigram EKG 05/21/24 Transmitted 15:45 Budesonide PHA 05/21/24 Transmitted (Inhalation) 22:00 Budesonide PHA 05/21/24 Transmitted (Inhalation) 22:00 Date of Service: May 21, 2024 Billing Provider: JAROD BALDERRAMA NP Common Visit Codes: [id number] INP/OBS CARE(HIGH) JAROD BALDERRAMA NP May 21, 2024 15:52
[2024-05-21] MEDS: BUDESONIDE (INHALATION) 0.5 MG/2 ML NEB NEB SCH (19:15)
--- NOTE | 2024-05-21 21:11 | ECG ---
[facility] Test Date: 2024-05-21 Test Time: 16:33:48 Pat Name: JHON MCCURDY Department: ER Room: 0286T Gender: F [employer] Manager: KRISSY : 1995 Requested By: MAMI THORNE Order Number: [id number] Reading MD: Lorne Lainez Measurements Intervals [place] Rate: 71 P: 51 OH: 161 QRS: 68 QRSD: 100 T: 58 QT: 418 QTc: 455 Interpretive Statements Sinus arrhythmia Electronically Signed On 05-24-2024 10:45:38 PST by Lorne Lainez Please click the below link to view image of tracing.
[2024-05-21] MEDS ORDERED: BUDESONIDE (INHALATION) 0.5 MG/2 ML NEB NEB SCH (22:00)
[2024-05-22] VITALS (18 sets, daily range): BP systolic 96–112; BP diastolic 40–69; PULSE 54–84; RESP 16–18; TEMP 97.6–98; O2SAT 94–100
[2024-05-22 07:59] LABS: Basophils # (auto) 0 10 ^3/uL (0-0.2); Basophils % (auto) 0.3 % (0.0-2.0); Eosinophils # (auto) 0 10 ^3/uL (0-0.8); Hematocrit 37.9 % (36.0-46.0); Hemoglobin 12.5 g/dL (12.2-16.2); Mean Corpuscular Hemoglobin 31.5 pg (28.0-32.0); Mean Corpuscular Volume 95.5 fL (80.0-100.0); Monocytes # (auto) 0.6 10 ^3/uL (0-1.3); Monocytes % (auto) 3.8 % (0.0-12.0); Neutrophils # (auto) 14.3 10 ^3/uL (1.6-8.6); Neutrophils % (auto) 89.9 % (37.0-80.0); Nucleated Red Blood Cells % 0.1 %; Platelet Count (auto) 182 10^3/uL (140-450); Red Blood Cells 3.97 10^6/uL (4.0-5.20); Red Cell Distribution Width 13.3 % (11.8-14.3); White Blood Cell 15.9 10^3/uL (4.4-10.8)
[2024-05-22 08:27] LABS: Anion Gap 8 (5-15); Carbon Dioxide 24 mmol/L (20-31)
[2024-05-22 08:28] LABS: Calcium 9.3 mg/dL (8.7-10.4)
[2024-05-22 08:33] LABS: Blood Urea Nitrogen 9 mg/dL (9-23)
[2024-05-22 08:55] LABS: Chloride 111 mmol/L (98-107); Glucose 142 mg/dL (74-106); Potassium 4.8 mmol/L (3.5-5.1); Sodium 143 mmol/L (136-145)
--- NOTE | 2024-05-22 11:39 | DVH ---
CHEST RADIOGRAPH Indication: Asthma exacerbation Technique: Single frontal view of the chest was obtained Comparison: None FINDINGS: Lines and Tubes: None Lungs: No focal consolidation. Pleura: No effusion. No pneumothorax. Cardiomediastinal contours: Unremarkable Bones: No acute osseous abnormality. IMPRESSION: No acute cardiopulmonary disease.
--- NOTE | 2024-05-22 12:27 | DVHPN2 ---
Subjective Patient reports that her shortness of breath has improved. Reviewed: Care Plan, H&P, Labs, Medications Changes from previous H/P or p: Changes General: Per HPI Objective Vitals Vital Signs Date Time Temp Pulse Resp B/P (MAP) Pulse Ox O2 Delivery O2 Flow Rate FiO2 05/22/24 11:38 67 18 95 05/22/24 09:00 97.6 105/62 (76) 97.6 05/22/24 08:00 Oxymizer 5 N/A Intake/Output Intake and Output 05/22/24 07:00 Intake Total 430 ml Balance 430 ml Intake IV Total 430 ml # Voids 1 General Appearance: Alert, Oriented X3, Cooperative, mild distress HEENT: Atraumatic, PERRLA Lungs: Normal air movement, Other (Inspiratory and expiratory wheezing. Currently on Oxymizer at 6 liters/minute) Cardiovascular: Regular rate, Normal S1, Normal S2, Other (Regular heart rate) Abdomen: Normal bowel sounds, Soft Back: Flank Tenderness, Midline Tenderness Musculoskeletal: Normal sensory function, Normal motor function Neuro: Normal gait, Normal speech Skin: Dry, Intact Psych/Mental Status: Mental status NL, Mood NL Medications Current Medications Medications Dose Ordered Sig/Zoila Route Start Time Stop Time Status Last Admin Dose Admin Magnesium Sulfate/ Dextrose 100 ml @ 400 mls/hr ONCE STAT IV 05/20/24 22:31 05/20/24 22:45 Cancel Vancomycin HCl 0 ml @ 0 mls/hr UD IV 05/20/24 22:45 Ceftriaxone Sodium 50 ml @ 100 mls/hr DAILY@09 IV 05/21/24 09:00 05/22/24 09:05 100 MLS/HR Methylprednisolone Sodium Succinate 40 mg BID IV 05/21/24 10:00 05/22/24 09:05 40 MG Temazepam 15 mg QHSP PRN PO 05/21/24 05:45 Ondansetron HCl 4 mg Q4HP PRN IV 05/21/24 05:45 Acetaminophen 650 mg Q6HP PRN PO 05/21/24 05:45 Nitroglycerin 0.4 mg Q5MINP PRN SL 05/21/24 05:45 Morphine Sulfate 2 mg Q30M PRN IV 05/21/24 05:45 Albuterol 2.5 mg Q6HR NEB 05/21/24 12:00 05/22/24 11:38 2.5 MG Ipratropium [place] 0.5 mg Q6HR NEB 05/21/24 12:00 05/22/24 11:38 0.5 MG Vancomycin HCl 250 ml @ 200 mls/hr Q12H IV 05/21/24 14:00 05/22/24 02:18 200 MLS/HR Budesonide 0.5 mg BID NEB 05/21/24 22:00 05/22/24 06:45 0.5 MG Laboratory Results Laboratory Tests 05/22/24 05:11 Chemistry Test 05/22/24 05:11 Calcium Level 9.3 mg/dL (8.7-10.4) Coagulation Test 05/22/24 05:11 D-Dimer, Quantitative 0.27 mg/L FEU (0.0-0.49) Urinalysis Test 05/21/24 05:00 Urine Color Light-yellow (Yellow) Urine Clarity Clear (Clear) Urine pH 5.0 (5.0-9.0) Urine Specific [place] 1.017 (1.001-1.035) Urine Protein Negative (Negative) Urine Ketones Negative (Negative) Urine Blood Negative /uL (Negative) Urine Nitrite Negative (Negative) Urine Bilirubin Negative (Negative) Urine Urobilinogen Normal mg/dL (Negative) Urine Leukocyte Esterase Negative /uL (Negative) Urine RBC 1 /hpf (0 - 4) Urine Microscopic WBC 2 /HPF (0-5) Urine Squamous Epithelial Cells Few /hpf (<5) Urine Bacteria None seen /hpf (None Seen) Urine Glucose Normal mg/dL (Normal) Urine Test Negative (Negative) Microbiology Microbiology Date/Time Source Procedure Growth Status 05/22/24 02:00 Nose MRSA Screen - Final Complete 05/21/24 08:05 Blood Blood Culture - Preliminary NO GROWTH AFTER 24 HOURS OF INCUBATION. Resulted Labs and/or images reviewed: Labs reviewed by me, Image(s) reviewed by me Assessment/Plan Assessment/Plan Impression: -acute hypoxic respiratory failure -recent pneumonia -asthma exacerbation -irregular heartbeat, questionable multifocal atrial tachycardia/wandering atrial pacemaker -leukocytosis Plan: Events: Patient reports improvement with respiratory status. Continues to be on Oxymizer at 4 liters/minute. Improvement with bibasilar inspiratory and expiratory wheezing. -continue bronchodilators -continue Pulmicort -continue Solu-Medrol -continue weaning O2 supplementation to keep saturation greater than 93% -social service consultation for pulmonary consultation as outpatient. Total time spent with patient discussing and formulating plan of care: 35 minutes. This medical document was created using an electronic medical record system with [employer] dictation system. Although this document has been carefully reviewed, there may still be some phonetic and typographical errors. These areas are purely typographical due to imperfections of the software programs, and do not reflect any compromise in the patient's medical care. Plan discussed with: Patient, Spouse, Other (RN) My Orders Orders - JAROD BALDERRAMA NP Procedure Category Date Status Time Electrocardigram EKG 05/21/24 Logged 15:45 Budesonide PHA 05/21/24 In Process (Inhalation) 22:00 Chest Xray 1 View XY 05/22/24 Resulted 09:28 * Lift Supervisor CONS 05/22/24 Verified Consult Date of Service: May 22, 2024 Billing Provider: JAROD BALDERRAMA NP Common Visit Codes: [id number] INP/OBS CARE(HIGH) JAROD BALDERRAMA NP May 22, 2024 12:27
[2024-05-23] VITALS (8 sets, daily range): BP systolic 101–106; BP diastolic 56–69; PULSE 68–97; RESP 16–17; TEMP 97.7–98; O2SAT 94–99
[2024-05-23] MEDS: VANCOMYCIN 1GM/250ML KIT 250 ML IV SCH (10:47)
[2024-05-23] MEDS ORDERED: BUDE1AER15 IN (12:19)
[2024-05-23] MEDS ORDERED: PRED20TA2 PO (12:19)
[2024-05-23] MEDS ORDERED: DOXY100C79 PO (12:19)
--- NOTE | 2024-05-23 14:03 | DVHDS2 ---
Discharge Summary Date of Admission May 21, 2024 at 05:33 Date of Discharge: May 23, 2024 Admitting Diagnosis Acute hypoxic respiratory failure Labs/Diagnostic Data: Laboratory Results Test 05/23/24 01:17 05/22/24 05:11 05/21/24 05:00 05/21/24 04:59 Vancomycin Level Trough 8.4 ug/mL (5-10) White Blood Count 15.9 10^3/uL (4.4-10.8) Red Blood Count 3.97 10^6/uL (4.0-5.20) Hemoglobin 12.5 g/dL (12.2-16.2) Hematocrit 37.9 % (36.0-46.0) Mean Corpuscular Volume 95.5 fL (80.0-100.0) Mean Corpuscular Hemoglobin 31.5 pg (28.0-32.0) Mean Corpuscular Hemoglobin Concent 33.0 g/dL (32.0-36.0) Red Cell Distribution Width 13.3 % (11.8-14.3) Platelet Count 182 10^3/uL (140-450) Mean Platelet Volume 10.4 fL (6.9-10.8) Neutrophils (%) (Auto) 89.9 % (37.0-80.0) Lymphocytes (%) (Auto) 6.0 % (10.0-50.0) Monocytes (%) (Auto) 3.8 % (0.0-12.0) Eosinophils (%) (Auto) 0.0 % (0.0-7.0) Basophils (%) (Auto) 0.3 % (0.0-2.0) Neutrophils # (Auto) 14.3 10 ^3/uL (1.6-8.6) Lymphocytes # (Auto) 1.0 10 ^3/uL (0.4-5.4) Monocytes # (Auto) 0.6 10 ^3/uL (0-1.3) Eosinophils # (Auto) 0 10 ^3/uL (0-0.8) Basophils # (Auto) 0 10 ^3/uL (0-0.2) Nucleated Red Blood Cells 0.1 % D-Dimer, Quantitative 0.27 mg/L FEU (0.0-0.49) Sodium Level 143 mmol/L (136-145) Potassium Level 4.8 mmol/L (3.5-5.1) Chloride Level 111 mmol/L (98-107) Carbon Dioxide Level 24 mmol/L (20-31) Anion Gap 8 (5-15) Blood Urea Nitrogen 9 mg/dL (9-23) Creatinine 0.53 mg/dL (0.550-1.02) Glomerular Filtration Rate Calc 130 mL/min (>90) BUN/Creatinine Ratio 17.0 (10.0-20.0) Serum Glucose 142 mg/dL (74-106) Calcium Level 9.3 mg/dL (8.7-10.4) Urine Color Light-yellow (Yellow) Urine Clarity Clear (Clear) Urine pH 5.0 (5.0-9.0) Urine Specific [place] 1.017 (1.001-1.035) Urine Protein Negative (Negative) Urine Ketones Negative (Negative) Urine Blood Negative /uL (Negative) Urine Nitrite Negative (Negative) Urine Bilirubin Negative (Negative) Urine Urobilinogen Normal mg/dL (Negative) Urine Leukocyte Esterase Negative /uL (Negative) Urine RBC 1 /hpf (0 - 4) Urine Microscopic WBC 2 /HPF (0-5) Urine Squamous Epithelial Cells Few /hpf (<5) Urine Bacteria None seen /hpf (None Seen) Urine Glucose Normal mg/dL (Normal) Urine Test Negative (Negative) Influenza Type A Antigen Negative (Negative) Influenza Type B Antigen Negative (Negative) SARS-CoV-2 Antigen (Rapid) Negative (NEGATIVE) Test 05/20/24 23:47 05/20/24 23:00 05/20/24 21:58 Lactic Acid Level 1.5 mmol/L (0.4-2.0) Troponin I High Sensitivity 5 ng/L (</=34) Blood Gas Specimen Type Arterial Blood Gas Sample Site Right radial Blood Gas Patient Temperature 37.0 Arterial Blood Date Drawn [id number] Arterial Blood pH 7.367 (7.350-7.450) Arterial Blood Partial Pressure CO2 41.5 mmHg (32.0-45.0) Arterial Blood Partial Pressure O2 458.0 mmHg (83.0-108.0) Arterial Blood HCO3 23.3 mmol/L (21.0-28.0) Arterial Blood Oxygen Saturation 99.7 % (94.0-98.0) Arterial Blood Base Excess -2.0 mmol/L (-2.0-3.0) Arterial Blood Oxyhemoglobin 98.6 % (94.0-98.0) Arterial Blood Carboxyhemoglobin 0.7 % (0.5-1.5) Arterial Blood Methemoglobin 0.4 % (0.0-1.5) Karthikeyan Test Modified Blood Gas Total Hemoglobin 15.20 g/dL (12.0-16.0) Blood Gas Set Respiration Rate 14.0 Blood Gas Modality Mask - bipap Blood Gas Spontaneous Rate 26 FiO2 % 100.0 Blood Gas Spontaneous Tidal Volume 713 Blood Gas EPAP 5 Blood Gas IPAP 14 Bl Gas Inspiratory/Expiratory Ratio 1:2 Blood Gas Critical Value Read Back Yes Blood Gas Notified Whom joaquina Messer Blood Gas Notified Time [id number] Blood Gas Notified By sekou Sherman Total Bilirubin 0.3 mg/dL (0.2-1.0) Aspartate Amino Transferase (AST) 19 U/L (13-40) Alanine Aminotransferase (ALT) 16 U/L (7-40) Alkaline Phosphatase 53 U/L (46-116) B-Type Natriuretic Peptide 9.55 pg/mL (0-100) Total Protein 6.6 g/dL (5.7-8.2) Albumin 4.4 g/dL (3.2-4.8) Other Laboratory Tests 05/22/24 05:11 Brief Hx & Hospital Course: History of Present Illness 28-year-old male presents for evaluation of shortness for breath. Patient with a history of asthma reports a one day history of worsening shortness for breath not being relieved with his inhaler and nebulizer. He denies cough or fever. Chest pain or palpitations. No other acute complaints reported. Course of hospitalization: Patient was started on empiric antibiotic therapy for questionable bronchial pneumonia. Patient had wheezing inspiratory, expiratory with noted hypoxia requiring O2 supplementation. Patient was started on bronchodilators, inhaled corticosteroids, as well as IV Solu-Medrol. Chest x-ray is unremarkable. Patient's wheezing improved. Today, she was weaned off O2 supplementation with a saturation of 93%. Patient will be discharged home and continued on a tapering dose of prednisone, Symbicort, as well as continued antibiotic therapy with doxycycline 100 mg p.o. b.i.d.. Patient was states that she was a home nebulizer with albuterol as well as albuterol MDI. Patient was instructed to follow up with her PCP within 1-2 weeks, and obtain referral to director energy. She was agreeable with discharge plan. All questions answered. Physical examination General: Alert and Oriented x3. No acute distress. Well-nourished. Eyes: EOMI. Anicteric. HENT: Moist mucous membranes. Lungs: Clear to auscultation bilaterally. No accessory muscle use. Cardiovascular: Regular rate and rhythm. No murmur. No JVD. Abdomen: Soft, non-tender and non-distended. No palpable masses. Extremities: No edema. Non-tender. Skin: No rashes or lesions. Warm. Neurologic: No focal neurological deficits. CN II-XII grossly intact, but not individually tested. Psychiatric: Cooperative. Appropriate mood and affect. Total time spent with patient discussing and formulating plan of care: 35 minutes. This medical document was created using an electronic medical record system with [employer] dictation system. Although this document has been carefully reviewed, there may still be some phonetic and typographical errors. These areas are purely typographical due to imperfections of the software programs, and do not reflect any compromise in the patient's medical care. Condition at Discharge: Fair Final Diagnosis/Problems List Acute Hypoxic Respiratory failure Discharge Disposition: Home Discharge Instruct/Medications Diet: Regular Activity: No Restrictions, As Tolerated Follow Up/Referral: Pulmonology at earliest appointment available. [place] [facility] in 1 week Medications: Symbicort 1 puff bid x 30 days Prednisone 20mg po bid x 7 days, then 20ng po daily Doxycycline 100mg po bid x 7 days 36 Discharge Statement: "Patient was advised to return to the ER or call 911 if any headaches, dizziness, shortness of breath, chest pain, abdominal pain, bleeding, fevers, or worsening of medical condition. Patient was counseled about treatment plan, medications, possible side effects, patientverbalized understanding. All questions were answered to the best of my ability. This discharge took greater then 30 minutes in planning, reviewing documentation, counseling the patient, and discussing with other team members." ASSESSMENT ASSESSMENT Assessment Acute Hypoxic Respiratory failure Date of Service: May 23, 2024 Billing Provider: JAROD BALDERRAMA NP Common Visit Codes: [id number] DISCH DAY >30min JAROD BALDERRAMA NP May 23, 2024 14:03
[2024-05-24 10:31] LABS: Hepatitis B Surface Antigen Negative (Negative); Hepatitis C Antibody Negative (Negative)
== END 2024-05-23 14:33 | disposition home or self-care (01) | DRG 189 ==
LOC: EDBD 21:35 → ER 21:35 → TELE 05-21 05:33 → TELE-WESTW 05-21 21:20 → OVERFLOW 05-22 15:36 → WEST WING 05-22 15:51 → OVERFLOW 05-23 13:20 → TELE-WESTW 05-23 13:35
PROVIDERS: ADMIT Nurse Practitioner; ATTEND Nurse Practitioner Acute Care
PROC: 5A09357 Assistance with Respiratory Ventilation, Less than 24 Consecutive Hours, Continuous Positive Airway Pressure (ICD-10-PCS; principal; 2024-05-21)
DX: J96.21 Acute and chronic respiratory failure with hypoxia (principal); J18.0 Bronchopneumonia, unspecified organism; J45.902 Unspecified asthma with status asthmaticus; F17.210 Nicotine dependence, cigarettes, uncomplicated; Z20.822 Contact with and (suspected) exposure to COVID-19; D72.829 Elevated white blood cell count, unspecified; I49.9 Cardiac arrhythmia, unspecified; Z79.899 Other long term (current) drug therapy; Z87.01 Personal history of pneumonia (recurrent)
CPT/HCPCS: 36415; 36600; 71045; 80048; 80053; 80202; 81001; 81025; 82805; 83605; 83880; 84484; 85025; 85379; 86803; 87040; 87081; 87340; 87426; 87804; 93005; 94640; 94660; 96374; 99291; G0378; J2543